=== PATIENT | female | born 1975 | race Caucasian/White ===

== ENCOUNTER 2022-06-03 22:44 | Emergency (ER) | payer BC, SELFPAY ==
[2022-06-03 22:54] VITALS: BP 119/81; PULSE 87; RESP 16; TEMP 37.1; O2SAT 98; BMI 20.2
[2022-06-03 23:49] LABS: Basophils Absolute Auto 0.04 K/uL (0.00-0.30); Basophils Percent Auto 0.5 % (0.0-3.0); Carboxyhemoglobin* 9.8 % (0.0-5.0); Eosinophils Absolute Auto 0.21 K/uL (0.00-0.50); Eosinophils Percent Auto 2.6 % (0.0-7.0); Hematocrit 41.1 % (33.0-51.0); Hemoglobin* 14.2 gm/dL (12.0-16.0); Immature Granulocytes Abs Auto 0.01 K/uL (0.00-0.30); Lymphocytes Absolute Auto 2.94 K/uL (0.90-2.90); Lymphocytes Percent Auto 36.7 % (20-44); Mean Corpuscular HGB Conc 35 gm/dL (32-36); Mean Corpuscular Hemoglobin 33 pg (26-34); Mean Corpuscular Volume 96 fL (80-100); Monocytes Percent Auto 8.4 % (0.0-11.0); Neutrophils Absolute Auto 4.15 K/uL (1.7-7.0); Neutrophils Percent Auto 51.7 % (42.0-72.0); Platelet Count* 221 K/uL (140-440); RDW Coefficient of Variation % 12.4 % (11.5-15.5); Red Blood Count 4.29 m/uL (4.00-5.20); White Blood Count* 8.02 K/uL (4.50-11.00)
[2022-06-03 23:51] LABS: Slide Review Reflex No
[2022-06-03 23:55] LABS: Albumin* 4.7 g/dL (3.3-5.0); Chloride* 105 mmol/L (96-114)
[2022-06-03 23:56] LABS: Potassium* 3.7 mmol/L (3.6-5.1); Sodium* 134 mmol/L (135-149)
--- NOTE | 2022-06-03 23:56 | ED.PSYCH ---
HPI - Psych General Date Seen: 06/03/22 <Jung Zurita MD - Last Filed: 06/04/22 13:00> Chief Complaint: Psychiatric Problem/Disorder <Jung Zurita MD - Last Filed: 06/04/22 13:00> Stated Complaint: SUICIDAL <Jung Zurita MD - Last Filed: 06/04/22 13:00> Time Seen by Provider: 06/03/22 22:53 <Jung Zurita MD - Last Filed: 06/04/22 13:00> Source: patient and other (Brought in by friend) <Jung Zurita MD - Last Filed: 06/04/22 13:00> Mode of arrival: ambulatory <Jung Zurita MD - Last Filed: 06/04/22 13:00> Limitations: no limitations <Jung Zurita MD - Last Filed: 06/04/22 13:00> History of Present Illness HPI Narrative: Patient is a 46-year-old lady who presents here with suicidal ideation and attempt yesterday, locking herself in her graduate running her car home night. She just wanted to go to sleep, by using the carbon monoxide. He has had previous suicidal attempts she tells me x3, with 2 previous evaluations here in the emergency room. She tells me she has tried medications for depression, and counseling both of which do not work. She was last on medications greater than 6 months ago, and counseling greater than 1 year ago. She is coming up to the anniversary of her sister dying, her sister 4 years ago and they never really got closure as the autopsy did not show any reason. They were told however that this was her heart. She does drink excessive alcohol, admits to having at least 8 beers tonight, this is a normal occurrence with about 8 beers a night total. Denies any drugs, denies taking any other medications tonight, Lives with her 3 children she has a 4 through lives in [place] and is with the [employer]. Local physician is Dr.Mark Hernandez <Jung Zurita MD - Last Filed: 06/04/22 13:00> MD complaint: suicidal ideation, feels depressed and altered mental status <Jung Zurita MD - Last Filed: 06/04/22 13:00> Onset (ago): week(s) <Jung Zurita MD - Last Filed: 06/04/22 13:00> Duration: constant <Jung Zurita MD - Last Filed: 06/04/22 13:00> History of same: Yes <Jung Zurita MD - Last Filed: 06/04/22 13:00> Relieving factors: none <Jung Zurita MD - Last Filed: 06/04/22 13:00> Exacerbating factors: alcohol <Jung Zurita MD - Last Filed: 06/04/22 13:00> Context: recent alcohol abuse and not taking psychiatric medications <Jung Zurita MD - Last Filed: 06/04/22 13:00> Associated psychiatric symptoms: depression, suicidal ideation and visual hallucinations (Thought her sister checked her last night, keeping her from going out to the garage ) <Jung Zurita MD - Last Filed: 06/04/22 13:00> Associated symptoms: denies other symptoms <Jung Zurita MD - Last Filed: 06/04/22 13:00> Treatments prior to arrival: none <Jung Zurita MD - Last Filed: 06/04/22 13:00> If self harm: has acted on plan <Jung Zurita MD - Last Filed: 06/04/22 13:00> Details of plan: Locking herself in the gradual run in the car <Jung Zurita MD - Last Filed: 06/04/22 13:00> Related Data Home Medications: Home Medications Medication Instructions Recorded Confirmed levothyroxine 50 mcg tablet mcg 06/03/22 <Jung Zurita MD - Last Filed: 06/04/22 13:00> Allergies/Adverse Reactions: Allergies Allergy/AdvReac Type Severity Reaction Status Date / Time latex AdvReac Verified 06/03/22 22:57 <Jung Zurita MD - Last Filed: 06/04/22 13:00> Review of Systems Status of ROS: Reports: 10 or more systems reviewed and unremarkable except as noted in History and below <Jung Zurita MD - Last Filed: 06/04/22 13:00> [facility] Medical History: Medical History Hypothyroidism <Jung Zurita MD - Last Filed: 06/04/22 13:00> Surgical History: Surgical History H/O LEEP History of abdominal hysterectomy <Jung Zurita MD - Last Filed: 06/04/22 13:00> Social History: Social History Smoking Status: Current every day smoker What tobacco products do you use: cigarettes Smoking packs per day: 2 Smoking cigarettes per day: 40.0 Do you use any of these nicotine containing products: None How often do you have a drink containing alcohol: 4 or more times a week How often do you have six or more drinks on one occasion: Daily or almost daily AUDIT-C Alcohol total score: 8 Non-prescribed substance use: denies use <Jung Zurita MD - Last Filed: 06/04/22 13:00> Exam Narrative: Exam Narrative: I find a comfortable in route room 2, she is examined with nurse present. Pupils are equal round reactive to light, nontoxic, smells of alcohol, TMs normal, oropharynx normal her neck is supple full range of motion chest is clear bilaterally with no wheezing crackles noted heart sounds no clicks murmurs or gallops her abdomen is soft, she has a bit of a full bladder, but no organomegaly is noted. Pelvis normal stable to rocking, all extremities are normal with absence of any cutting phenomena, she has a bruise in her right antecubital fossa, from a blood draw yesterday for STDs at the [facility]. Neurologically intact with cranial nerves 3-12 normal, she has no tremors, moving all extremities independently and well. <Jung Zurita MD - Last Filed: 06/04/22 13:00> Const: Vital Signs, click to edit/add: Vital Signs - 24 hr 06/04/22 03:00 06/04/22 05:00 06/04/22 09:59 Temperature 98.3 F Pulse Rate [Left P ulse Oximeter] 74 77 Respiratory Rate 14 16 20 Blood Pressure [Le ft Upper Arm] 123/76 Pulse Oximetry 97 96 97 Oxygen Delivery Me thod Room Air Room Air Room Air 06/04/22 16:43 Temperature 97.9 F Pulse Rate [Left P ulse Oximeter] 66 Respiratory Rate 16 Blood Pressure [Le ft Upper Arm] 121/74 Pulse Oximetry 97 Oxygen Delivery Me thod <Jung Zurita MD - Last Filed: 06/04/22 13:00> Vital Signs, click to edit/add: Vital Signs - 24 hr 06/04/22 03:00 06/04/22 05:00 06/04/22 09:59 Temperature 98.3 F Pulse Rate [Left P ulse Oximeter] 74 77 Respiratory Rate 14 16 20 Blood Pressure [Le ft Upper Arm] 123/76 Pulse Oximetry 97 96 97 Oxygen Delivery Me thod Room Air Room Air Room Air 06/04/22 16:43 Temperature 97.9 F Pulse Rate [Left P ulse Oximeter] 66 Respiratory Rate 16 Blood Pressure [Le ft Upper Arm] 121/74 Pulse Oximetry 97 Oxygen Delivery Me thod <Radha Aranda MD - Last Filed: 06/05/22 02:24> Vital Signs, click to edit/add: Vital Signs - 24 hr 06/04/22 03:00 06/04/22 05:00 06/04/22 09:59 Temperature 98.3 F Pulse Rate [Left P ulse Oximeter] 74 77 Respiratory Rate 14 16 20 Blood Pressure [Le ft Upper Arm] 123/76 Pulse Oximetry 97 96 97 Oxygen Delivery Me thod Room Air Room Air Room Air 06/04/22 16:43 Temperature 97.9 F Pulse Rate [Left P ulse Oximeter] 66 Respiratory Rate 16 Blood Pressure [Le ft Upper Arm] 121/74 Pulse Oximetry 97 Oxygen Delivery Me thod <Leo Newsome MD - Last Filed: 06/04/22 11:56> Vital Signs, click to edit/add: Vital Signs - 24 hr 06/04/22 03:00 06/04/22 05:00 06/04/22 09:59 Temperature 98.3 F Pulse Rate [Left P ulse Oximeter] 74 77 Respiratory Rate 14 16 20 Blood Pressure [Le ft Upper Arm] 123/76 Pulse Oximetry 97 96 97 Oxygen Delivery Me thod Room Air Room Air Room Air 06/04/22 16:43 Temperature 97.9 F Pulse Rate [Left P ulse Oximeter] 66 Respiratory Rate 16 Blood Pressure [Le ft Upper Arm] 121/74 Pulse Oximetry 97 Oxygen Delivery Me thod <Dayanara Neumann MD - Last Filed: 06/06/22 16:00> Documenting provider has reviewed patient's vital signs: yes <Jung Zurita MD - Last Filed: 06/04/22 13:00> Course Reevaluation(s) Reevaluation #1: I assumed care of patient from Dr. Zurita, labs reviewed. Carbon monoxide levels noted, under 10% is not likely to be causing any impairment. Markedly high alcohol level noted. Based on significant intoxication, will need to wait until morning for reassessment, deck evaluation. At this time based on her recent suicide attempt, she is certainly holdable. Dr. Zurita has signed this. He gave me the impression that the patient would be voluntary. I allow her to eat, she does so safely. She has been resting comfortably through my shift. <Radha Aranda MD - Last Filed: 06/05/22 02:24> Time: 05:09 <Radha Aranda MD - Last Filed: 06/05/22 02:24> Reevaluation #2: Patient was stable during the day until transfer to [facility]. Did order a nicotine patch per her request. <Dayanara Neumann MD - Last Filed: 06/06/22 16:00> Vital Signs Vital signs: Initial Vital Signs Temperature 98.7 F 06/03/22 22:54 Temperature Source Temporal Artery Scan 06/03/22 22:54 Pulse Rate 87 06/03/22 22:54 Pulse Rhythm 06/03/22 22:54 Respiratory Rate 16 06/03/22 22:54 Blood Pressure 119/81 06/03/22 22:54 Blood Pressure Mean 93 06/03/22 22:54 Blood Pressure Position Sitting 06/03/22 22:54 Pulse Oximetry 98 06/03/22 22:54 Oxygen Delivery Method 06/03/22 22:54 Vital Signs Temperature 98.7 F 06/03/22 22:54 Pulse Rate 87 06/03/22 22:54 Respiratory Rate 16 06/03/22 22:54 Blood Pressure 119/81 1013/22 22:54 Pulse Oximetry 98 06/03/22 22:54 Oxygen Delivery Method 06/03/22 22:54 Temperature 97.5 F L 06/05/22 14:28 Pulse Rate 56 L 06/05/22 14:28 Respiratory Rate 16 06/05/22 14:28 Blood Pressure 122/76 06/05/22 14:28 Pulse Oximetry 16 L 06/05/22 14:28 Oxygen Delivery Method 06/05/22 14:28 <Jung Zurita MD - Last Filed: 06/04/22 13:00> Initial Vital Signs Temperature 98.7 F 06/03/22 22:54 Temperature Source Temporal Artery Scan 06/03/22 22:54 Pulse Rate 87 06/03/22 22:54 Pulse Rhythm 06/03/22 22:54 Respiratory Rate 16 06/03/22 22:54 Blood Pressure 119/81 06/03/22 22:54 Blood Pressure Mean 93 06/03/22 22:54 Blood Pressure Position Sitting 06/03/22 22:54 Pulse Oximetry 98 06/03/22 22:54 Oxygen Delivery Method 06/03/22 22:54 Vital Signs Temperature 98.7 F 06/03/22 22:54 Pulse Rate 87 06/03/22 22:54 Respiratory Rate 16 06/03/22 22:54 Blood Pressure 119/81 06/03/22 22:54 Pulse Oximetry 98 06/03/22 22:54 Oxygen Delivery Method 06/03/22 22:54 Temperature 97.5 F L 06/05/22 14:28 Pulse Rate 56 L 06/05/22 14:28 Respiratory Rate 16 06/05/22 14:28 Blood Pressure 122/76 06/05/22 14:28 Pulse Oximetry 16 L 06/05/22 14:28 Oxygen Delivery Method 06/05/22 14:28 <Radha Aranda MD - Last Filed: 06/05/22 02:24> Initial Vital Signs Temperature 98.7 F 06/03/22 22:54 Temperature Source Temporal Artery Scan 06/03/22 22:54 Pulse Rate 87 06/03/22 22:54 Pulse Rhythm 06/03/22 22:54 Respiratory Rate 16 06/03/22 22:54 Blood Pressure 119/81 06/03/22 22:54 Blood Pressure Mean 93 06/03/22 22:54 Blood Pressure Position Sitting 06/03/22 22:54 Pulse Oximetry 98 06/03/22 22:54 Oxygen Delivery Method 06/03/22 22:54 Vital Signs Temperature 98.7 F 06/03/22 22:54 Pulse Rate 87 06/03/22 22:54 Respiratory Rate 16 06/03/22 22:54 Blood Pressure 119/81 06/03/22 22:54 Pulse Oximetry 98 06/03/22 22:54 Oxygen Delivery Method 06/03/22 22:54 Temperature 97.5 F L 06/05/22 14:28 Pulse Rate 56 L 06/05/22 14:28 Respiratory Rate 16 06/05/22 14:28 Blood Pressure 122/76 06/05/22 14:28 Pulse Oximetry 16 L 06/05/22 14:28 Oxygen Delivery Method 06/05/22 14:28 <Leo Newsome MD - Last Filed: 06/04/22 11:56> Initial Vital Signs Temperature 98.7 F 06/03/22 22:54 Temperature Source Temporal Artery Scan 06/03/22 22:54 Pulse Rate 87 06/03/22 22:54 Pulse Rhythm 06/03/22 22:54 Respiratory Rate 16 06/03/22 22:54 Blood Pressure 119/81 06/03/22 22:54 Blood Pressure Mean 93 06/03/22 22:54 Blood Pressure Position Sitting 06/03/22 22:54 Pulse Oximetry 98 06/03/22 22:54 Oxygen Delivery Method 06/03/22 22:54 Vital Signs Temperature 98.7 F 06/03/22 22:54 Pulse Rate 87 06/03/22 22:54 Respiratory Rate 16 06/03/22 22:54 Blood Pressure 119/81 06/03/22 22:54 Pulse Oximetry 98 06/03/22 22:54 Oxygen Delivery Method 06/03/22 22:54 Temperature 97.5 F L 06/05/22 14:28 Pulse Rate 56 L 06/05/22 14:28 Respiratory Rate 16 06/05/22 14:28 Blood Pressure 122/76 06/05/22 14:28 Pulse Oximetry 16 L 06/05/22 14:28 Oxygen Delivery Method 06/05/22 14:28 <Dayanara Neumann MD - Last Filed: 06/06/22 16:00> MDM - Psych MDM Narrative Medical decision making narrative: Differential diagnosis includes but is not limited life-threatening diagnosis is of severe depression with suicidal plan, chemical intoxication with suicidal ideation and risk of self-harm, schizoaffective disorder with risk of self-harm, bipolar disorder with severe depressive phase and risk of self-harm, personality disorder with risk of self-harm, depression due to hyperthyroidism, metabolic derangement, or [employer] abnormality She will require sobriety before she gets her mental health assessment, but she is holdable, she is cooperative rate now but if she decides to leave, a 72 hour hold should be placed. I will go ahead and place orders, for a common blood tests with the addition of carboxyhemoglobin. She will be signed over to the oncoming physician Dr. Aranda for further care and disposition. <Jung Zurita MD - Last Filed: 06/04/22 13:00> Differential diagnosis includes but is not limited life-threatening diagnosis is of severe depression with suicidal plan, chemical intoxication with suicidal ideation and risk of self-harm, schizoaffective disorder with risk of self-harm, bipolar disorder with severe depressive phase and risk of self-harm, personality disorder with risk of self-harm, depression due to hyperthyroidism, metabolic derangement, or [employer] abnormality She will require sobriety before she gets her mental health assessment, but she is holdable, she is cooperative rate now but if she decides to leave, a 72 hour hold should be placed. I will go ahead and place orders, for a common blood tests with the addition of carboxyhemoglobin. She will be signed over to the oncoming physician Dr. Aranda for further care and disposition. This patient slept through the night and did awake to take breakfast in the morning. A [facility] mental assessment was ordered and completed with recommendation for inpatient evaluation and treatment. The patient is not agreeable with this plan. She is placed on a 72 hour hold and arrangements are being made for inpatient placement. I did offer a tablet of Ativan which the patient initially has refused but an order is in place if needed and desired going forward. She does take approximately 8 beers daily. She does not describe any withdrawal symptoms. - Dr. Keagan Newsome <Leo Newsome MD - Last Filed: 06/04/22 11:56> Lab Data Labs: Lab Results 06/03/22 06/03/22 06/03/22 Range/Units 23:30 23:30 23:30 WBC (4.50-11.00) K/uL RBC (4.00-5.20) m/uL Hgb (12.0-16.0) gm/dL Hct (33.0-51.0) % MCV (80-100) fL MCH (26-34) pg MCHC (32-36) gm/dL RDW Coeff of Akhil (11.5-15.5) % Plt Count (140-440) K/uL Neut % (Auto) (42.0-72.0) % Lymph % (Auto) (20-44) % [place] % (Auto) (0.0-11.0) % Eos % (Auto) (0.0-7.0) % Baso % (Auto) (0.0-3.0) % Neut # (Auto) (1.7-7.0) K/uL Lymph # (Auto) (0.90-2.90) K/uL [place] # (Auto) (0.00-0.90) K/UL Eos # (Auto) (0.00-0.50) K/uL Baso # (Auto) (0.00-0.30) K/uL Abs Immat Gran (auto) (0.00-0.30) K/uL Carboxyhemoglobin 9.8 H (0.0-5.0) % Sodium (135-149) mmol/L Potassium (3.6-5.1) mmol/L Chloride (96-114) mmol/L Carbon Dioxide (20-32) mmol/L BUN (5-24) mg/dL Creatinine (0.5-1.5) mg/dL Estimated Creat Clear Estimated GFR ml/min Glucose (60-115) mg/dL Calcium (8.4-10.6) mg/dL Total Bilirubin (0.1-1.5) mg/dL Direct Bilirubin (0.0-0.5) mg/dL AST (12-35) U/L ALT (4-35) U/L Alkaline Phosphatase (40-150) U/L Total Protein (6.0-8.3) g/dL Albumin (3.3-5.0) g/dL TSH 3.110 (0.270-4.20) uIU/mL HCG, Qual (Negative) Salicylates < 1.0 L (1.0-10) mg/dL Urine Opiates Screen (Negative) Ur Oxycodone Screen (Negative) Urine Methadone Screen (Negative) Ur Propoxyphene Screen (Negative) Acetaminophen (10.0-30.0) ug/mL Ur Barbiturates Screen (Negative) U Tricyclic Antidepress (Negative) Ur Phencyclidine Scrn (Negative) Ur Amphetamines Screen (Negative) U Methamphetamines Scrn (Negative) U Benzodiazepines Scrn (Negative) Urine Cocaine Screen (Negative) U Marijuana (THC) Screen (Negative) Ur Drug Screen Comment Ethyl Alcohol (0.01-0.03) % SARS-CoV-2 (PCR) (Negative) Influenza Type A (PCR) (Negative) Influenza Type B (PCR) (Negative) RSV (PCR) (Negative) 06/03/22 06/03/22 06/03/22 Range/Units 23:30 23:30 23:30 WBC 8.02 (4.50-11.00) K/uL RBC 4.29 (4.00-5.20) m/uL Hgb 14.2 (12.0-16.0) gm/dL Hct 41.1 (33.0-51.0) % MCV 96 (80-100) fL MCH 33 (26-34) pg MCHC 35 (32-36) gm/dL RDW Coeff of Akhil 12.4 (11.5-15.5) % Plt Count 221 (140-440) K/uL Neut % (Auto) 51.7 (42.0-72.0) % Lymph % (Auto) 36.7 (20-44) % [place] % (Auto) 8.4 (0.0-11.0) % Eos % (Auto) 2.6 (0.0-7.0) % Baso % (Auto) 0.5 (0.0-3.0) % Neut # (Auto) 4.15 (1.7-7.0) K/uL Lymph # (Auto) 2.94 H (0.90-2.90) K/uL [place] # (Auto) 0.70 (0.00-0.90) K/UL Eos # (Auto) 0.21 (0.00-0.50) K/uL Baso # (Auto) 0.04 (0.00-0.30) K/uL Abs Immat Gran (auto) 0.01 (0.00-0.30) K/uL Carboxyhemoglobin (0.0-5.0) % Sodium 134 L (135-149) mmol/L Potassium 3.7 (3.6-5.1) mmol/L Chloride 105 (96-114) mmol/L Carbon Dioxide 19 L (20-32) mmol/L BUN 7 (5-24) mg/dL Creatinine 0.6 (0.5-1.5) mg/dL Estimated Creat Clear 107.10 Estimated GFR 113 ml/min Glucose 96 (60-115) mg/dL Calcium 8.9 (8.4-10.6) mg/dL Total Bilirubin 0.6 (0.1-1.5) mg/dL Direct Bilirubin 0.2 (0.0-0.5) mg/dL AST 47 H (12-35) U/L ALT 17 (4-35) U/L Alkaline Phosphatase 41 (40-150) U/L Total Protein 7.2 (6.0-8.3) g/dL Albumin 4.7 (3.3-5.0) g/dL TSH (0.270-4.20) uIU/mL HCG, Qual Negative (Negative) Salicylates (1.0-10) mg/dL Urine Opiates Screen (Negative) Ur Oxycodone Screen (Negative) Urine Methadone Screen (Negative) Ur Propoxyphene Screen (Negative) Acetaminophen < 10.0 L (10.0-30.0) ug/mL Ur Barbiturates Screen (Negative) U Tricyclic Antidepress (Negative) Ur Phencyclidine Scrn (Negative) Ur Amphetamines Screen (Negative) U Methamphetamines Scrn (Negative) U Benzodiazepines Scrn (Negative) Urine Cocaine Screen (Negative) U Marijuana (THC) Screen (Negative) Ur Drug Screen Comment Ethyl Alcohol 0.33 H* (0.01-0.03) % SARS-CoV-2 (PCR) (Negative) Influenza Type A (PCR) (Negative) Influenza Type B (PCR) (Negative) RSV (PCR) (Negative) 06/03/22 06/03/22 06/04/22 Range/Units 23:45 23:45 16:19 WBC (4.50-11.00) K/uL RBC (4.00-5.20) m/uL Hgb (12.0-16.0) gm/dL Hct (33.0-51.0) % MCV (80-100) fL MCH (26-34) pg MCHC (32-36) gm/dL RDW Coeff of Akhil (11.5-15.5) % Plt Count (140-440) K/uL Neut % (Auto) (42.0-72.0) % Lymph % (Auto) (20-44) % [place] % (Auto) (0.0-11.0) % Eos % (Auto) (0.0-7.0) % Baso % (Auto) (0.0-3.0) % Neut # (Auto) (1.7-7.0) K/uL Lymph # (Auto) (0.90-2.90) K/uL [place] # (Auto) (0.00-0.90) K/UL Eos # (Auto) (0.00-0.50) K/uL Baso # (Auto) (0.00-0.30) K/uL Abs Immat Gran (auto) (0.00-0.30) K/uL Carboxyhemoglobin (0.0-5.0) % Sodium (135-149) mmol/L Potassium (3.6-5.1) mmol/L Chloride (96-114) mmol/L Carbon Dioxide (20-32) mmol/L BUN (5-24) mg/dL Creatinine (0.5-1.5) mg/dL Estimated Creat Clear Estimated GFR ml/min Glucose (60-115) mg/dL Calcium (8.4-10.6) mg/dL Total Bilirubin (0.1-1.5) mg/dL Direct Bilirubin (0.0-0.5) mg/dL AST (12-35) U/L ALT (4-35) U/L Alkaline Phosphatase (40-150) U/L Total Protein (6.0-8.3) g/dL Albumin (3.3-5.0) g/dL TSH (0.270-4.20) uIU/mL HCG, Qual (Negative) Salicylates (1.0-10) mg/dL Urine Opiates Screen Negative (Negative) Ur Oxycodone Screen Negative (Negative) Urine Methadone Screen Negative (Negative) Ur Propoxyphene Screen Negative (Negative) Acetaminophen (10.0-30.0) ug/mL Ur Barbiturates Screen Negative (Negative) U Tricyclic Antidepress Negative (Negative) Ur Phencyclidine Scrn Negative (Negative) Ur Amphetamines Screen Negative (Negative) U Methamphetamines Scrn Negative (Negative) U Benzodiazepines Scrn Negative (Negative) Urine Cocaine Screen Negative (Negative) U Marijuana (THC) Screen Negative (Negative) Ur Drug Screen Comment See Note Ethyl Alcohol < 0.01 L (0.01-0.03) % SARS-CoV-2 (PCR) Negative SARS-CoV-2 (Negative) Influenza Type A (PCR) Negative PCR FLU A (Negative) Influenza Type B (PCR) Negative PCR FLU B (Negative) RSV (PCR) Negative PCR RSV (Negative) 06/04/22 Range/Units 16:19 WBC (4.50-11.00) K/uL RBC (4.00-5.20) m/uL Hgb (12.0-16.0) gm/dL Hct (33.0-51.0) % MCV (80-100) fL MCH (26-34) pg MCHC (32-36) gm/dL RDW Coeff of Akhil (11.5-15.5) % Plt Count (140-440) K/uL Neut % (Auto) (42.0-72.0) % Lymph % (Auto) (20-44) % [place] % (Auto) (0.0-11.0) % Eos % (Auto) (0.0-7.0) % Baso % (Auto) (0.0-3.0) % Neut # (Auto) (1.7-7.0) K/uL Lymph # (Auto) (0.90-2.90) K/uL [place] # (Auto) (0.00-0.90) K/UL Eos # (Auto) (0.00-0.50) K/uL Baso # (Auto) (0.00-0.30) K/uL Abs Immat Gran (auto) (0.00-0.30) K/uL Carboxyhemoglobin (0.0-5.0) % Sodium 137 (135-149) mmol/L Potassium 4.3 (3.6-5.1) mmol/L Chloride 107 (96-114) mmol/L Carbon Dioxide 26 (20-32) mmol/L BUN 16 (5-24) mg/dL Creatinine 0.7 (0.5-1.5) mg/dL Estimated Creat Clear 91.80 Estimated GFR 109 ml/min Glucose 162 H (60-115) mg/dL Calcium 9.3 (8.4-10.6) mg/dL Total Bilirubin (0.1-1.5) mg/dL Direct Bilirubin (0.0-0.5) mg/dL AST (12-35) U/L ALT (4-35) U/L Alkaline Phosphatase (40-150) U/L Total Protein (6.0-8.3) g/dL Albumin (3.3-5.0) g/dL TSH (0.270-4.20) uIU/mL HCG, Qual (Negative) Salicylates (1.0-10) mg/dL Urine Opiates Screen (Negative) Ur Oxycodone Screen (Negative) Urine Methadone Screen (Negative) Ur Propoxyphene Screen (Negative) Acetaminophen (10.0-30.0) ug/mL Ur Barbiturates Screen (Negative) U Tricyclic Antidepress (Negative) Ur Phencyclidine Scrn (Negative) Ur Amphetamines Screen (Negative) U Methamphetamines Scrn (Negative) U Benzodiazepines Scrn (Negative) Urine Cocaine Screen (Negative) U Marijuana (THC) Screen (Negative) Ur Drug Screen Comment Ethyl Alcohol (0.01-0.03) % SARS-CoV-2 (PCR) (Negative) Influenza Type A (PCR) (Negative) Influenza Type B (PCR) (Negative) RSV (PCR) (Negative) <Jung Zurita MD - Last Filed: 06/04/22 13:00> Lab Results 06/03/22 06/03/22 06/03/22 Range/Units 23:30 23:30 23:30 WBC (4.50-11.00) K/uL RBC (4.00-5.20) m/uL Hgb (12.0-16.0) gm/dL Hct (33.0-51.0) % MCV (80-100) fL MCH (26-34) pg MCHC (32-36) gm/dL RDW Coeff of Akhil (11.5-15.5) % Plt Count (140-440) K/uL Neut % (Auto) (42.0-72.0) % Lymph % (Auto) (20-44) % [place] % (Auto) (0.0-11.0) % Eos % (Auto) (0.0-7.0) % Baso % (Auto) (0.0-3.0) % Neut # (Auto) (1.7-7.0) K/uL Lymph # (Auto) (0.90-2.90) K/uL [place] # (Auto) (0.00-0.90) K/UL Eos # (Auto) (0.00-0.50) K/uL Baso # (Auto) (0.00-0.30) K/uL Abs Immat Gran (auto) (0.00-0.30) K/uL Carboxyhemoglobin 9.8 H (0.0-5.0) % Sodium (135-149) mmol/L Potassium (3.6-5.1) mmol/L Chloride (96-114) mmol/L Carbon Dioxide (20-32) mmol/L BUN (5-24) mg/dL Creatinine (0.5-1.5) mg/dL Estimated Creat Clear Estimated GFR ml/min Glucose (60-115) mg/dL Calcium (8.4-10.6) mg/dL Total Bilirubin (0.1-1.5) mg/dL Direct Bilirubin (0.0-0.5) mg/dL AST (12-35) U/L ALT (4-35) U/L Alkaline Phosphatase (40-150) U/L Total Protein (6.0-8.3) g/dL Albumin (3.3-5.0) g/dL TSH 3.110 (0.270-4.20) uIU/mL HCG, Qual (Negative) Salicylates < 1.0 L (1.0-10) mg/dL Urine Opiates Screen (Negative) Ur Oxycodone Screen (Negative) Urine Methadone Screen (Negative) Ur Propoxyphene Screen (Negative) Acetaminophen (10.0-30.0) ug/mL Ur Barbiturates Screen (Negative) U Tricyclic Antidepress (Negative) Ur Phencyclidine Scrn (Negative) Ur Amphetamines Screen (Negative) U Methamphetamines Scrn (Negative) U Benzodiazepines Scrn (Negative) Urine Cocaine Screen (Negative) U Marijuana (THC) Screen (Negative) Ur Drug Screen Comment Ethyl Alcohol (0.01-0.03) % SARS-CoV-2 (PCR) (Negative) Influenza Type A (PCR) (Negative) Influenza Type B (PCR) (Negative) RSV (PCR) (Negative) 06/03/22 06/03/22 06/03/22 Range/Units 23:30 23:30 23:30 WBC 8.02 (4.50-11.00) K/uL RBC 4.29 (4.00-5.20) m/uL Hgb 14.2 (12.0-16.0) gm/dL Hct 41.1 (33.0-51.0) % MCV 96 (80-100) fL MCH 33 (26-34) pg MCHC 35 (32-36) gm/dL RDW Coeff of Akhil 12.4 (11.5-15.5) % Plt Count 221 (140-440) K/uL Neut % (Auto) 51.7 (42.0-72.0) % Lymph % (Auto) 36.7 (20-44) % [place] % (Auto) 8.4 (0.0-11.0) % Eos % (Auto) 2.6 (0.0-7.0) % Baso % (Auto) 0.5 (0.0-3.0) % Neut # (Auto) 4.15 (1.7-7.0) K/uL Lymph # (Auto) 2.94 H (0.90-2.90) K/uL [place] # (Auto) 0.70 (0.00-0.90) K/UL Eos # (Auto) 0.21 (0.00-0.50) K/uL Baso # (Auto) 0.04 (0.00-0.30) K/uL Abs Immat Gran (auto) 0.01 (0.00-0.30) K/uL Carboxyhemoglobin (0.0-5.0) % Sodium 134 L (135-149) mmol/L Potassium 3.7 (3.6-5.1) mmol/L Chloride 105 (96-114) mmol/L Carbon Dioxide 19 L (20-32) mmol/L BUN 7 (5-24) mg/dL Creatinine 0.6 (0.5-1.5) mg/dL Estimated Creat Clear 107.10 Estimated GFR 113 ml/min Glucose 96 (60-115) mg/dL Calcium 8.9 (8.4-10.6) mg/dL Total Bilirubin 0.6 (0.1-1.5) mg/dL Direct Bilirubin 0.2 (0.0-0.5) mg/dL AST 47 H (12-35) U/L ALT 17 (4-35) U/L Alkaline Phosphatase 41 (40-150) U/L Total Protein 7.2 (6.0-8.3) g/dL Albumin 4.7 (3.3-5.0) g/dL TSH (0.270-4.20) uIU/mL HCG, Qual Negative (Negative) Salicylates (1.0-10) mg/dL Urine Opiates Screen (Negative) Ur Oxycodone Screen (Negative) Urine Methadone Screen (Negative) Ur Propoxyphene Screen (Negative) Acetaminophen < 10.0 L (10.0-30.0) ug/mL Ur Barbiturates Screen (Negative) U Tricyclic Antidepress (Negative) Ur Phencyclidine Scrn (Negative) Ur Amphetamines Screen (Negative) U Methamphetamines Scrn (Negative) U Benzodiazepines Scrn (Negative) Urine Cocaine Screen (Negative) U Marijuana (THC) Screen (Negative) Ur Drug Screen Comment Ethyl Alcohol 0.33 H* (0.01-0.03) % SARS-CoV-2 (PCR) (Negative) Influenza Type A (PCR) (Negative) Influenza Type B (PCR) (Negative) RSV (PCR) (Negative) 06/03/22 06/03/22 06/04/22 Range/Units 23:45 23:45 16:19 WBC (4.50-11.00) K/uL RBC (4.00-5.20) m/uL Hgb (12.0-16.0) gm/dL Hct (33.0-51.0) % MCV (80-100) fL MCH (26-34) pg MCHC (32-36) gm/dL RDW Coeff of Akhil (11.5-15.5) % Plt Count (140-440) K/uL Neut % (Auto) (42.0-72.0) % Lymph % (Auto) (20-44) % [place] % (Auto) (0.0-11.0) % Eos % (Auto) (0.0-7.0) % Baso % (Auto) (0.0-3.0) % Neut # (Auto) (1.7-7.0) K/uL Lymph # (Auto) (0.90-2.90) K/uL [place] # (Auto) (0.00-0.90) K/UL Eos # (Auto) (0.00-0.50) K/uL Baso # (Auto) (0.00-0.30) K/uL Abs Immat Gran (auto) (0.00-0.30) K/uL Carboxyhemoglobin (0.0-5.0) % Sodium (135-149) mmol/L Potassium (3.6-5.1) mmol/L Chloride (96-114) mmol/L Carbon Dioxide (20-32) mmol/L BUN (5-24) mg/dL Creatinine (0.5-1.5) mg/dL Estimated Creat Clear Estimated GFR ml/min Glucose (60-115) mg/dL Calcium (8.4-10.6) mg/dL Total Bilirubin (0.1-1.5) mg/dL Direct Bilirubin (0.0-0.5) mg/dL AST (12-35) U/L ALT (4-35) U/L Alkaline Phosphatase (40-150) U/L Total Protein (6.0-8.3) g/dL Albumin (3.3-5.0) g/dL TSH (0.270-4.20) uIU/mL HCG, Qual (Negative) Salicylates (1.0-10) mg/dL Urine Opiates Screen Negative (Negative) Ur Oxycodone Screen Negative (Negative) Urine Methadone Screen Negative (Negative) Ur Propoxyphene Screen Negative (Negative) Acetaminophen (10.0-30.0) ug/mL Ur Barbiturates Screen Negative (Negative) U Tricyclic Antidepress Negative (Negative) Ur Phencyclidine Scrn Negative (Negative) Ur Amphetamines Screen Negative (Negative) U Methamphetamines Scrn Negative (Negative) U Benzodiazepines Scrn Negative (Negative) Urine Cocaine Screen Negative (Negative) U Marijuana (THC) Screen Negative (Negative) Ur Drug Screen Comment See Note Ethyl Alcohol < 0.01 L (0.01-0.03) % SARS-CoV-2 (PCR) Negative SARS-CoV-2 (Negative) Influenza Type A (PCR) Negative PCR FLU A (Negative) Influenza Type B (PCR) Negative PCR FLU B (Negative) RSV (PCR) Negative PCR RSV (Negative) 06/04/22 Range/Units 16:19 WBC (4.50-11.00) K/uL RBC (4.00-5.20) m/uL Hgb (12.0-16.0) gm/dL Hct (33.0-51.0) % MCV (80-100) fL MCH (26-34) pg MCHC (32-36) gm/dL RDW Coeff of Akhil (11.5-15.5) % Plt Count (140-440) K/uL Neut % (Auto) (42.0-72.0) % Lymph % (Auto) (20-44) % [place] % (Auto) (0.0-11.0) % Eos % (Auto) (0.0-7.0) % Baso % (Auto) (0.0-3.0) % Neut # (Auto) (1.7-7.0) K/uL Lymph # (Auto) (0.90-2.90) K/uL [place] # (Auto) (0.00-0.90) K/UL Eos # (Auto) (0.00-0.50) K/uL Baso # (Auto) (0.00-0.30) K/uL Abs Immat Gran (auto) (0.00-0.30) K/uL Carboxyhemoglobin (0.0-5.0) % Sodium 137 (135-149) mmol/L Potassium 4.3 (3.6-5.1) mmol/L Chloride 107 (96-114) mmol/L Carbon Dioxide 26 (20-32) mmol/L BUN 16 (5-24) mg/dL Creatinine 0.7 (0.5-1.5) mg/dL Estimated Creat Clear 91.80 Estimated GFR 109 ml/min Glucose 162 H (60-115) mg/dL Calcium 9.3 (8.4-10.6) mg/dL Total Bilirubin (0.1-1.5) mg/dL Direct Bilirubin (0.0-0.5) mg/dL AST (12-35) U/L ALT (4-35) U/L Alkaline Phosphatase (40-150) U/L Total Protein (6.0-8.3) g/dL Albumin (3.3-5.0) g/dL TSH (0.270-4.20) uIU/mL HCG, Qual (Negative) Salicylates (1.0-10) mg/dL Urine Opiates Screen (Negative) Ur Oxycodone Screen (Negative) Urine Methadone Screen (Negative) Ur Propoxyphene Screen (Negative) Acetaminophen (10.0-30.0) ug/mL Ur Barbiturates Screen (Negative) U Tricyclic Antidepress (Negative) Ur Phencyclidine Scrn (Negative) Ur Amphetamines Screen (Negative) U Methamphetamines Scrn (Negative) U Benzodiazepines Scrn (Negative) Urine Cocaine Screen (Negative) U Marijuana (THC) Screen (Negative) Ur Drug Screen Comment Ethyl Alcohol (0.01-0.03) % SARS-CoV-2 (PCR) (Negative) Influenza Type A (PCR) (Negative) Influenza Type B (PCR) (Negative) RSV (PCR) (Negative) <Radha Aranda MD - Last Filed: 06/05/22 02:24> Lab Results 06/03/22 06/03/22 06/03/22 Range/Units 23:30 23:30 23:30 WBC (4.50-11.00) K/uL RBC (4.00-5.20) m/uL Hgb (12.0-16.0) gm/dL Hct (33.0-51.0) % MCV (80-100) fL MCH (26-34) pg MCHC (32-36) gm/dL RDW Coeff of Akhil (11.5-15.5) % Plt Count (140-440) K/uL Neut % (Auto) (42.0-72.0) % Lymph % (Auto) (20-44) % [place] % (Auto) (0.0-11.0) % Eos % (Auto) (0.0-7.0) % Baso % (Auto) (0.0-3.0) % Neut # (Auto) (1.7-7.0) K/uL Lymph # (Auto) (0.90-2.90) K/uL [place] # (Auto) (0.00-0.90) K/UL Eos # (Auto) (0.00-0.50) K/uL Baso # (Auto) (0.00-0.30) K/uL Abs Immat Gran (auto) (0.00-0.30) K/uL Carboxyhemoglobin 9.8 H (0.0-5.0) % Sodium (135-149) mmol/L Potassium (3.6-5.1) mmol/L Chloride (96-114) mmol/L Carbon Dioxide (20-32) mmol/L BUN (5-24) mg/dL Creatinine (0.5-1.5) mg/dL Estimated Creat Clear Estimated GFR ml/min Glucose (60-115) mg/dL Calcium (8.4-10.6) mg/dL Total Bilirubin (0.1-1.5) mg/dL Direct Bilirubin (0.0-0.5) mg/dL AST (12-35) U/L ALT (4-35) U/L Alkaline Phosphatase (40-150) U/L Total Protein (6.0-8.3) g/dL Albumin (3.3-5.0) g/dL TSH 3.110 (0.270-4.20) uIU/mL HCG, Qual (Negative) Salicylates < 1.0 L (1.0-10) mg/dL Urine Opiates Screen (Negative) Ur Oxycodone Screen (Negative) Urine Methadone Screen (Negative) Ur Propoxyphene Screen (Negative) Acetaminophen (10.0-30.0) ug/mL Ur Barbiturates Screen (Negative) U Tricyclic Antidepress (Negative) Ur Phencyclidine Scrn (Negative) Ur Amphetamines Screen (Negative) U Methamphetamines Scrn (Negative) U Benzodiazepines Scrn (Negative) Urine Cocaine Screen (Negative) U Marijuana (THC) Screen (Negative) Ur Drug Screen Comment Ethyl Alcohol (0.01-0.03) % SARS-CoV-2 (PCR) (Negative) Influenza Type A (PCR) (Negative) Influenza Type B (PCR) (Negative) RSV (PCR) (Negative) 06/03/22 06/03/22 06/03/22 Range/Units 23:30 23:30 23:30 WBC 8.02 (4.50-11.00) K/uL RBC 4.29 (4.00-5.20) m/uL Hgb 14.2 (12.0-16.0) gm/dL Hct 41.1 (33.0-51.0) % MCV 96 (80-100) fL MCH 33 (26-34) pg MCHC 35 (32-36) gm/dL RDW Coeff of Akhil 12.4 (11.5-15.5) % Plt Count 221 (140-440) K/uL Neut % (Auto) 51.7 (42.0-72.0) % Lymph % (Auto) 36.7 (20-44) % [place] % (Auto) 8.4 (0.0-11.0) % Eos % (Auto) 2.6 (0.0-7.0) % Baso % (Auto) 0.5 (0.0-3.0) % Neut # (Auto) 4.15 (1.7-7.0) K/uL Lymph # (Auto) 2.94 H (0.90-2.90) K/uL [place] # (Auto) 0.70 (0.00-0.90) K/UL Eos # (Auto) 0.21 (0.00-0.50) K/uL Baso # (Auto) 0.04 (0.00-0.30) K/uL Abs Immat Gran (auto) 0.01 (0.00-0.30) K/uL Carboxyhemoglobin (0.0-5.0) % Sodium 134 L (135-149) mmol/L Potassium 3.7 (3.6-5.1) mmol/L Chloride 105 (96-114) mmol/L Carbon Dioxide 19 L (20-32) mmol/L BUN 7 (5-24) mg/dL Creatinine 0.6 (0.5-1.5) mg/dL Estimated Creat Clear 107.10 Estimated GFR 113 ml/min Glucose 96 (60-115) mg/dL Calcium 8.9 (8.4-10.6) mg/dL Total Bilirubin 0.6 (0.1-1.5) mg/dL Direct Bilirubin 0.2 (0.0-0.5) mg/dL AST 47 H (12-35) U/L ALT 17 (4-35) U/L Alkaline Phosphatase 41 (40-150) U/L Total Protein 7.2 (6.0-8.3) g/dL Albumin 4.7 (3.3-5.0) g/dL TSH (0.270-4.20) uIU/mL HCG, Qual Negative (Negative) Salicylates (1.0-10) mg/dL Urine Opiates Screen (Negative) Ur Oxycodone Screen (Negative) Urine Methadone Screen (Negative) Ur Propoxyphene Screen (Negative) Acetaminophen < 10.0 L (10.0-30.0) ug/mL Ur Barbiturates Screen (Negative) U Tricyclic Antidepress (Negative) Ur Phencyclidine Scrn (Negative) Ur Amphetamines Screen (Negative) U Methamphetamines Scrn (Negative) U Benzodiazepines Scrn (Negative) Urine Cocaine Screen (Negative) U Marijuana (THC) Screen (Negative) Ur Drug Screen Comment Ethyl Alcohol 0.33 H* (0.01-0.03) % SARS-CoV-2 (PCR) (Negative) Influenza Type A (PCR) (Negative) Influenza Type B (PCR) (Negative) RSV (PCR) (Negative) 06/03/22 06/03/22 06/04/22 Range/Units 23:45 23:45 16:19 WBC (4.50-11.00) K/uL RBC (4.00-5.20) m/uL Hgb (12.0-16.0) gm/dL Hct (33.0-51.0) % MCV (80-100) fL MCH (26-34) pg MCHC (32-36) gm/dL RDW Coeff of Akhil (11.5-15.5) % Plt Count (140-440) K/uL Neut % (Auto) (42.0-72.0) % Lymph % (Auto) (20-44) % [place] % (Auto) (0.0-11.0) % Eos % (Auto) (0.0-7.0) % Baso % (Auto) (0.0-3.0) % Neut # (Auto) (1.7-7.0) K/uL Lymph # (Auto) (0.90-2.90) K/uL [place] # (Auto) (0.00-0.90) K/UL Eos # (Auto) (0.00-0.50) K/uL Baso # (Auto) (0.00-0.30) K/uL Abs Immat Gran (auto) (0.00-0.30) K/uL Carboxyhemoglobin (0.0-5.0) % Sodium (135-149) mmol/L Potassium (3.6-5.1) mmol/L Chloride (96-114) mmol/L Carbon Dioxide (20-32) mmol/L BUN (5-24) mg/dL Creatinine (0.5-1.5) mg/dL Estimated Creat Clear Estimated GFR ml/min Glucose (60-115) mg/dL Calcium (8.4-10.6) mg/dL Total Bilirubin (0.1-1.5) mg/dL Direct Bilirubin (0.0-0.5) mg/dL AST (12-35) U/L ALT (4-35) U/L Alkaline Phosphatase (40-150) U/L Total Protein (6.0-8.3) g/dL Albumin (3.3-5.0) g/dL TSH (0.270-4.20) uIU/mL HCG, Qual (Negative) Salicylates (1.0-10) mg/dL Urine Opiates Screen Negative (Negative) Ur Oxycodone Screen Negative (Negative) Urine Methadone Screen Negative (Negative) Ur Propoxyphene Screen Negative (Negative) Acetaminophen (10.0-30.0) ug/mL Ur Barbiturates Screen Negative (Negative) U Tricyclic Antidepress Negative (Negative) Ur Phencyclidine Scrn Negative (Negative) Ur Amphetamines Screen Negative (Negative) U Methamphetamines Scrn Negative (Negative) U Benzodiazepines Scrn Negative (Negative) Urine Cocaine Screen Negative (Negative) U Marijuana (THC) Screen Negative (Negative) Ur Drug Screen Comment See Note Ethyl Alcohol < 0.01 L (0.01-0.03) % SARS-CoV-2 (PCR) Negative SARS-CoV-2 (Negative) Influenza Type A (PCR) Negative PCR FLU A (Negative) Influenza Type B (PCR) Negative PCR FLU B (Negative) RSV (PCR) Negative PCR RSV (Negative) 06/04/22 Range/Units 16:19 WBC (4.50-11.00) K/uL RBC (4.00-5.20) m/uL Hgb (12.0-16.0) gm/dL Hct (33.0-51.0) % MCV (80-100) fL MCH (26-34) pg MCHC (32-36) gm/dL RDW Coeff of Akhil (11.5-15.5) % Plt Count (140-440) K/uL Neut % (Auto) (42.0-72.0) % Lymph % (Auto) (20-44) % [place] % (Auto) (0.0-11.0) % Eos % (Auto) (0.0-7.0) % Baso % (Auto) (0.0-3.0) % Neut # (Auto) (1.7-7.0) K/uL Lymph # (Auto) (0.90-2.90) K/uL [place] # (Auto) (0.00-0.90) K/UL Eos # (Auto) (0.00-0.50) K/uL Baso # (Auto) (0.00-0.30) K/uL Abs Immat Gran (auto) (0.00-0.30) K/uL Carboxyhemoglobin (0.0-5.0) % Sodium 137 (135-149) mmol/L Potassium 4.3 (3.6-5.1) mmol/L Chloride 107 (96-114) mmol/L Carbon Dioxide 26 (20-32) mmol/L BUN 16 (5-24) mg/dL Creatinine 0.7 (0.5-1.5) mg/dL Estimated Creat Clear 91.80 Estimated GFR 109 ml/min Glucose 162 H (60-115) mg/dL Calcium 9.3 (8.4-10.6) mg/dL Total Bilirubin (0.1-1.5) mg/dL Direct Bilirubin (0.0-0.5) mg/dL AST (12-35) U/L ALT (4-35) U/L Alkaline Phosphatase (40-150) U/L Total Protein (6.0-8.3) g/dL Albumin (3.3-5.0) g/dL TSH (0.270-4.20) uIU/mL HCG, Qual (Negative) Salicylates (1.0-10) mg/dL Urine Opiates Screen (Negative) Ur Oxycodone Screen (Negative) Urine Methadone Screen (Negative) Ur Propoxyphene Screen (Negative) Acetaminophen (10.0-30.0) ug/mL Ur Barbiturates Screen (Negative) U Tricyclic Antidepress (Negative) Ur Phencyclidine Scrn (Negative) Ur Amphetamines Screen (Negative) U Methamphetamines Scrn (Negative) U Benzodiazepines Scrn (Negative) Urine Cocaine Screen (Negative) U Marijuana (THC) Screen (Negative) Ur Drug Screen Comment Ethyl Alcohol (0.01-0.03) % SARS-CoV-2 (PCR) (Negative) Influenza Type A (PCR) (Negative) Influenza Type B (PCR) (Negative) RSV (PCR) (Negative) <Leo Newsome MD - Last Filed: 06/04/22 11:56> Lab Results 06/03/22 06/03/22 06/03/22 Range/Units 23:30 23:30 23:30 WBC (4.50-11.00) K/uL RBC (4.00-5.20) m/uL Hgb (12.0-16.0) gm/dL Hct (33.0-51.0) % MCV (80-100) fL MCH (26-34) pg MCHC (32-36) gm/dL RDW Coeff of Akhil (11.5-15.5) % Plt Count (140-440) K/uL Neut % (Auto) (42.0-72.0) % Lymph % (Auto) (20-44) % [place] % (Auto) (0.0-11.0) % Eos % (Auto) (0.0-7.0) % Baso % (Auto) (0.0-3.0) % Neut # (Auto) (1.7-7.0) K/uL Lymph # (Auto) (0.90-2.90) K/uL [place] # (Auto) (0.00-0.90) K/UL Eos # (Auto) (0.00-0.50) K/uL Baso # (Auto) (0.00-0.30) K/uL Abs Immat Gran (auto) (0.00-0.30) K/uL Carboxyhemoglobin 9.8 H (0.0-5.0) % Sodium (135-149) mmol/L Potassium (3.6-5.1) mmol/L Chloride (96-114) mmol/L Carbon Dioxide (20-32) mmol/L BUN (5-24) mg/dL Creatinine (0.5-1.5) mg/dL Estimated Creat Clear Estimated GFR ml/min Glucose (60-115) mg/dL Calcium (8.4-10.6) mg/dL Total Bilirubin (0.1-1.5) mg/dL Direct Bilirubin (0.0-0.5) mg/dL AST (12-35) U/L ALT (4-35) U/L Alkaline Phosphatase (40-150) U/L Total Protein (6.0-8.3) g/dL Albumin (3.3-5.0) g/dL TSH 3.110 (0.270-4.20) uIU/mL HCG, Qual (Negative) Salicylates < 1.0 L (1.0-10) mg/dL Urine Opiates Screen (Negative) Ur Oxycodone Screen (Negative) Urine Methadone Screen (Negative) Ur Propoxyphene Screen (Negative) Acetaminophen (10.0-30.0) ug/mL Ur Barbiturates Screen (Negative) U Tricyclic Antidepress (Negative) Ur Phencyclidine Scrn (Negative) Ur Amphetamines Screen (Negative) U Methamphetamines Scrn (Negative) U Benzodiazepines Scrn (Negative) Urine Cocaine Screen (Negative) U Marijuana (THC) Screen (Negative) Ur Drug Screen Comment Ethyl Alcohol (0.01-0.03) % SARS-CoV-2 (PCR) (Negative) Influenza Type A (PCR) (Negative) Influenza Type B (PCR) (Negative) RSV (PCR) (Negative) 06/03/22 06/03/22 06/03/22 Range/Units 23:30 23:30 23:30 WBC 8.02 (4.50-11.00) K/uL RBC 4.29 (4.00-5.20) m/uL Hgb 14.2 (12.0-16.0) gm/dL Hct 41.1 (33.0-51.0) % MCV 96 (80-100) fL MCH 33 (26-34) pg MCHC 35 (32-36) gm/dL RDW Coeff of Akhil 12.4 (11.5-15.5) % Plt Count 221 (140-440) K/uL Neut % (Auto) 51.7 (42.0-72.0) % Lymph % (Auto) 36.7 (20-44) % [place] % (Auto) 8.4 (0.0-11.0) % Eos % (Auto) 2.6 (0.0-7.0) % Baso % (Auto) 0.5 (0.0-3.0) % Neut # (Auto) 4.15 (1.7-7.0) K/uL Lymph # (Auto) 2.94 H (0.90-2.90) K/uL [place] # (Auto) 0.70 (0.00-0.90) K/UL Eos # (Auto) 0.21 (0.00-0.50) K/uL Baso # (Auto) 0.04 (0.00-0.30) K/uL Abs Immat Gran (auto) 0.01 (0.00-0.30) K/uL Carboxyhemoglobin (0.0-5.0) % Sodium 134 L (135-149) mmol/L Potassium 3.7 (3.6-5.1) mmol/L Chloride 105 (96-114) mmol/L Carbon Dioxide 19 L (20-32) mmol/L BUN 7 (5-24) mg/dL Creatinine 0.6 (0.5-1.5) mg/dL Estimated Creat Clear 107.10 Estimated GFR 113 ml/min Glucose 96 (60-115) mg/dL Calcium 8.9 (8.4-10.6) mg/dL Total Bilirubin 0.6 (0.1-1.5) mg/dL Direct Bilirubin 0.2 (0.0-0.5) mg/dL AST 47 H (12-35) U/L ALT 17 (4-35) U/L Alkaline Phosphatase 41 (40-150) U/L Total Protein 7.2 (6.0-8.3) g/dL Albumin 4.7 (3.3-5.0) g/dL TSH (0.270-4.20) uIU/mL HCG, Qual Negative (Negative) Salicylates (1.0-10) mg/dL Urine Opiates Screen (Negative) Ur Oxycodone Screen (Negative) Urine Methadone Screen (Negative) Ur Propoxyphene Screen (Negative) Acetaminophen < 10.0 L (10.0-30.0) ug/mL Ur Barbiturates Screen (Negative) U Tricyclic Antidepress (Negative) Ur Phencyclidine Scrn (Negative) Ur Amphetamines Screen (Negative) U Methamphetamines Scrn (Negative) U Benzodiazepines Scrn (Negative) Urine Cocaine Screen (Negative) U Marijuana (THC) Screen (Negative) Ur Drug Screen Comment Ethyl Alcohol 0.33 H* (0.01-0.03) % SARS-CoV-2 (PCR) (Negative) Influenza Type A (PCR) (Negative) Influenza Type B (PCR) (Negative) RSV (PCR) (Negative) 06/03/22 06/03/22 06/04/22 Range/Units 23:45 23:45 16:19 WBC (4.50-11.00) K/uL RBC (4.00-5.20) m/uL Hgb (12.0-16.0) gm/dL Hct (33.0-51.0) % MCV (80-100) fL MCH (26-34) pg MCHC (32-36) gm/dL RDW Coeff of Akhil (11.5-15.5) % Plt Count (140-440) K/uL Neut % (Auto) (42.0-72.0) % Lymph % (Auto) (20-44) % [place] % (Auto) (0.0-11.0) % Eos % (Auto) (0.0-7.0) % Baso % (Auto) (0.0-3.0) % Neut # (Auto) (1.7-7.0) K/uL Lymph # (Auto) (0.90-2.90) K/uL [place] # (Auto) (0.00-0.90) K/UL Eos # (Auto) (0.00-0.50) K/uL Baso # (Auto) (0.00-0.30) K/uL Abs Immat Gran (auto) (0.00-0.30) K/uL Carboxyhemoglobin (0.0-5.0) % Sodium (135-149) mmol/L Potassium (3.6-5.1) mmol/L Chloride (96-114) mmol/L Carbon Dioxide (20-32) mmol/L BUN (5-24) mg/dL Creatinine (0.5-1.5) mg/dL Estimated Creat Clear Estimated GFR ml/min Glucose (60-115) mg/dL Calcium (8.4-10.6) mg/dL Total Bilirubin (0.1-1.5) mg/dL Direct Bilirubin (0.0-0.5) mg/dL AST (12-35) U/L ALT (4-35) U/L Alkaline Phosphatase (40-150) U/L Total Protein (6.0-8.3) g/dL Albumin (3.3-5.0) g/dL TSH (0.270-4.20) uIU/mL HCG, Qual (Negative) Salicylates (1.0-10) mg/dL Urine Opiates Screen Negative (Negative) Ur Oxycodone Screen Negative (Negative) Urine Methadone Screen Negative (Negative) Ur Propoxyphene Screen Negative (Negative) Acetaminophen (10.0-30.0) ug/mL Ur Barbiturates Screen Negative (Negative) U Tricyclic Antidepress Negative (Negative) Ur Phencyclidine Scrn Negative (Negative) Ur Amphetamines Screen Negative (Negative) U Methamphetamines Scrn Negative (Negative) U Benzodiazepines Scrn Negative (Negative) Urine Cocaine Screen Negative (Negative) U Marijuana (THC) Screen Negative (Negative) Ur Drug Screen Comment See Note Ethyl Alcohol < 0.01 L (0.01-0.03) % SARS-CoV-2 (PCR) Negative SARS-CoV-2 (Negative) Influenza Type A (PCR) Negative PCR FLU A (Negative) Influenza Type B (PCR) Negative PCR FLU B (Negative) RSV (PCR) Negative PCR RSV (Negative) 06/04/22 Range/Units 16:19 WBC (4.50-11.00) K/uL RBC (4.00-5.20) m/uL Hgb (12.0-16.0) gm/dL Hct (33.0-51.0) % MCV (80-100) fL MCH (26-34) pg MCHC (32-36) gm/dL RDW Coeff of Akhil (11.5-15.5) % Plt Count (140-440) K/uL Neut % (Auto) (42.0-72.0) % Lymph % (Auto) (20-44) % [place] % (Auto) (0.0-11.0) % Eos % (Auto) (0.0-7.0) % Baso % (Auto) (0.0-3.0) % Neut # (Auto) (1.7-7.0) K/uL Lymph # (Auto) (0.90-2.90) K/uL [place] # (Auto) (0.00-0.90) K/UL Eos # (Auto) (0.00-0.50) K/uL Baso # (Auto) (0.00-0.30) K/uL Abs Immat Gran (auto) (0.00-0.30) K/uL Carboxyhemoglobin (0.0-5.0) % Sodium 137 (135-149) mmol/L Potassium 4.3 (3.6-5.1) mmol/L Chloride 107 (96-114) mmol/L Carbon Dioxide 26 (20-32) mmol/L BUN 16 (5-24) mg/dL Creatinine 0.7 (0.5-1.5) mg/dL Estimated Creat Clear 91.80 Estimated GFR 109 ml/min Glucose 162 H (60-115) mg/dL Calcium 9.3 (8.4-10.6) mg/dL Total Bilirubin (0.1-1.5) mg/dL Direct Bilirubin (0.0-0.5) mg/dL AST (12-35) U/L ALT (4-35) U/L Alkaline Phosphatase (40-150) U/L Total Protein (6.0-8.3) g/dL Albumin (3.3-5.0) g/dL TSH (0.270-4.20) uIU/mL HCG, Qual (Negative) Salicylates (1.0-10) mg/dL Urine Opiates Screen (Negative) Ur Oxycodone Screen (Negative) Urine Methadone Screen (Negative) Ur Propoxyphene Screen (Negative) Acetaminophen (10.0-30.0) ug/mL Ur Barbiturates Screen (Negative) U Tricyclic Antidepress (Negative) Ur Phencyclidine Scrn (Negative) Ur Amphetamines Screen (Negative) U Methamphetamines Scrn (Negative) U Benzodiazepines Scrn (Negative) Urine Cocaine Screen (Negative) U Marijuana (THC) Screen (Negative) Ur Drug Screen Comment Ethyl Alcohol (0.01-0.03) % SARS-CoV-2 (PCR) (Negative) Influenza Type A (PCR) (Negative) Influenza Type B (PCR) (Negative) RSV (PCR) (Negative) <Dayanara Neumann MD - Last Filed: 06/06/22 16:00> ECG Data Attestation: I personally reviewed and interpreted this ECG as follows: <Jung Zurita MD - Last Filed: 06/04/22 13:00> ECG interpretation date: 06/04/22 <Jung Zurita MD - Last Filed: 06/04/22 13:00> Interpretation: EKG shows normal sinus rhythm, no acute ST wave changes are noted, there is a repolarization abnormality however. QRS QT and AZ intervals are <Jung Zurita MD - Last Filed: 06/04/22 13:00> Discharge Plan Discharge Prescriptions: No Action levothyroxine 50 mcg tablet <Jung Zurita MD - Last Filed: 06/04/22 13:00> Follow Up/Referrals: John Hernandez MD [Primary Care Provider] - <Jung Zurita MD - Last Filed: 06/04/22 13:00>
--- OUTSIDE RECORDS SUMMARY | 2022-06-03 23:57 | XMS_ITS ---
:1975 Author Care Team Providers Name Role Phone Dwayne Arriaza Primary Care Provider Unavailable Allergies None recorded. Medications Name Status Start Date Stop Date ? ? bupropion HCl XL 150 mg 24 hr tablet, extended release Active ? Not available TK 1 T PO QAM ciprofloxacin 500 mg tablet Active ? Not available fluconazole 150 mg tablet Active ? Not av ailable levothyroxine 50 mcg tablet Active ? Not available lidocaine HCl 2 % mucosal jelly Active ? Not available APPLY TOPICALLY TO THE AFFECTED AREA EVERY 3 HOURS nitrofurantoin monohydrate/macrocrystals 100 mg capsule Active ? Not available TAKE 1 CAPSULE BY MOUTH TWICE DAILY FOR 7 DAYS phenazopyridine 200 mg tablet Active ? No t available TAKE 1 TABLET BY MOUTH THREE TIMES DAILY AFTER MEALS FOR 2 DAYS venlafaxine ER 150 mg capsule,extended release 24 hr Active ? Not available TK 1 C PO QD WAC venlafaxine ER 75 mg capsule,extended release 24 hr Active ? Not available TK 1 C PO QD WAC Problems None recorded. Procedures None recorded. Results Lab Results Date Name Specimen Result Interpretation Description Value Range Status Address ? ? Rapid SARS CoV 2 Ag, QL ? Results negative ? ? 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 [phone] 12/08/2020 Exposure to SARS-CoV-2; Sore Throat Symp daniela; Headache; Counseling [facility]-C: [id number] [place] [address], Ph. [phone] Social History None recorded. Vaccine List None recorded. Plan of Care Patient Instructions Keep a safe distance. ... ? Wear a mask. ... ? Encourage proper hygiene. ... ? The best way to protect yourself and o thers is to stay home for 14 days if you think you’ve been exposed to someone who has COVID-19. ? Watch for fever (100.4?F or higher), c ough, shortness of breath, or other symptoms of COVID-19. ? Consider getting tested for COVID-19. Even if you test negative for COVID-19 or feel healthy, you should still stay home (quarantine) for 14 days after your last contact with a person who has COV ID-19. This is because symptoms may appe ar 2 to 14 days after exposure to the virus, and some infected people never have symptoms but are still contagious. ? Do not travel until 14 days after your last possible exposure. ? Monitor yourself and household members for symptoms of COVID-19. ? Get information about COVID-19 testing if you feel sick. Look for emergency warning signs* for CO VID-19. If you have any of these signs, seek emergency medical care immediately ? Trouble breathing ? Persistent pain or pressure in the [address] ? New confusion ? Inability to wake or stay awake Keep a safe distance. ... ? Wear a mask. ... ? Encourage proper hygiene. ... ? The best way to protect yourself and o thers is to stay home for 14 days if you think you’ve been exposed to someone who has COVID-19. ? Watch for fever (100.4?F or higher), c ough, shortness of breath, or other symptoms of COVID-19. ? Consider getting tested for COVID-19. Even if you test negative for COVID-19 or feel healthy, you should still stay home (quarantine) for 14 days after your last contact with a person who has COV ID-19. This is because symptoms may appe ar 2 to 14 days after exposure to the virus, and some infected people never have symptoms but are still contagious. ? Do not travel until 14 days after your last possible exposure. ? Monitor yourself and household members for symptoms of COVID-19. ? Get information about COVID-19 testing if you feel sick. Look for emergency warning signs* for CO VID-19. If you have any of these signs, seek emergency medical care immediately ? Trouble breathing ? Persistent pain or pressure in the [address] ? New confusion ? Inability to wake or stay awake Reminders Provider Appointments None recorded. ? ? Lab None recorded. ? ? Referral None recorded. ? ? Procedures None recorded. ? ? Surgeries None recorded. ? ? Imaging None recorded. ? ? Vitals None recorded.
--- OUTSIDE RECORDS SUMMARY | 2022-06-03 23:57 | XMS_ITS ---
[...] ? [facility]: [place], Respiratory Specimen [id number] [facility] Past Encounters 12/22/2020 Sore Throat Symptom; Cough; Exposure to SARS-CoV-2; Counseling Dwayne Arriaza APRN-WELDING MACHINE OPERATOR/TENDER-C: [address] [place] [address], Ph. [phone] 12/08/2020 Exposure to SARS-CoV-2; Sore Throat Symp daniela; Headache; Counseling ERICH Power-C: [address] [place] [address], Ph. [phone] Social History None recorded. Vaccine List None [...]
[2022-06-03 23:58] LABS: Bilirubin Direct* 0.2 mg/dL (0.0-0.5); Bilirubin Total* 0.6 mg/dL (0.1-1.5); Carbon Dioxide* 19 mmol/L (20-32); Creatinine* 0.6 mg/dL (0.5-1.5); Estimated Glomerular Filt Rate 113 ml/min; Total Protein* 7.2 g/dL (6.0-8.3)
[2022-06-03 23:59] LABS: Alanine Aminotransferase* 17 U/L (4-35); Alkaline Phosphatase* 41 U/L (40-150); Aspartate Amino Transferase* 47 U/L (12-35); Blood Urea Nitrogen* 7 mg/dL (5-24); Calcium* 8.9 mg/dL (8.4-10.6); Glucose* 96 mg/dL (60-115)
[2022-06-04 00:02] LABS: HCG Qualitative* Negative (Negative)
[2022-06-04 00:03] LABS: Acetaminophen* < 10.0 ug/mL (10.0-30.0); Salicylate* < 1.0 mg/dL (1.0-10)
[2022-06-04 00:08] LABS: Ethanol* 0.33 % (0.01-0.03)
[2022-06-04 00:09] LABS: Amphetamine Screen Urine Negative (Negative); Barbiturate Screen Urine Negative (Negative); Benzodiazepines Screen Urine Negative (Negative); Cannabinoid Screen Urine Negative (Negative); Cocaine Screen Urine Negative (Negative); Methadone Screen Urine Negative (Negative); Methamphetamines Screen Urine Negative (Negative); Opiate Screen Urine Negative (Negative); Oxycodone Screen Urine Negative (Negative); Phencyclidine Screen Urine Negative (Negative); Tricyclic Antidepressant Urine Negative (Negative)
--- NOTE | 2022-06-04 00:09 | ED.NURSE ---
etoh elevated, md garcia updated. verbal to wait on DEC assessment.
[2022-06-04 00:38] LABS: PCR FLU A Negative PCR FLU A (Negative); PCR FLU B Negative PCR FLU B (Negative); PCR RSV Negative PCR RSV (Negative)
[2022-06-04 00:59] LABS: SARS PCR* Negative SARS-CoV-2 (Negative)
[2022-06-04 01:00] VITALS: RESP 16; O2SAT 96
[2022-06-04 03:00] VITALS: RESP 14; O2SAT 97
[2022-06-04 05:00] VITALS: PULSE 74; RESP 16; O2SAT 96
--- NOTE | 2022-06-04 06:59 | ED.NURSE ---
patient slept through night, cooperative on waking pt up for checks.
--- NOTE | 2022-06-04 08:45 | ED.NURSE ---
Pt sleeping on cart. Repositioning herself independently. Being monitored on camera due to safety.
[2022-06-04 09:59] VITALS: BP 123/76; PULSE 77; RESP 20; TEMP 36.8; O2SAT 97
--- NOTE | 2022-06-04 10:21 | ED.NURSE ---
DEC assessment started
--- NOTE | 2022-06-04 11:10 | ED.NURSE ---
Pt now on a 72 hour hold. Will need placement. Hold rights given to pt.
--- NOTE | 2022-06-04 12:40 | PC.NURSE ---
Faxed information to [place]. Social work updated. They will check in with us in a little while.
--- NOTE | 2022-06-04 15:05 | ED.NURSE ---
[facility] still reviewing. Information faxed at [phone]
--- NOTE | 2022-06-04 16:02 | ED.NURSE ---
Luis F Tobar and Murphy Barragan declines due to high risk of ETOH withdrawl. Needs to be clear of alcohol for 36-72 hours
--- NOTE | 2022-06-04 16:32 | PC.NURSE ---
[facility] has beds available. Faxed information over to [facility]. Will wait for them to review and get back to us.
[2022-06-04 16:37] LABS: Chloride* 107 mmol/L (96-114); Sodium* 137 mmol/L (135-149)
[2022-06-04 16:38] LABS: Potassium* 4.3 mmol/L (3.6-5.1)
[2022-06-04 16:40] LABS: Carbon Dioxide* 26 mmol/L (20-32); Creatinine* 0.7 mg/dL (0.5-1.5); Estimated Glomerular Filt Rate 109 ml/min
[2022-06-04 16:41] LABS: Blood Urea Nitrogen* 16 mg/dL (5-24); Calcium* 9.3 mg/dL (8.4-10.6); Glucose* 162 mg/dL (60-115)
[2022-06-04 16:43] VITALS: BP 121/74; PULSE 66; RESP 16; TEMP 36.6; O2SAT 97
[2022-06-04 16:47] LABS: Ethanol* < 0.01 % (0.01-0.03)
--- NOTE | 2022-06-04 17:00 | ED.NURSE ---
Pt was on the phone with her 18 year old son. Pt came out and stated that she must have misunderstood what actually happened and that her sone could give me more information. Spoke with son who stated that he wasn't around last evening until pt left. Son stated he did not want to give me any other information.
--- NOTE | 2022-06-04 17:33 | PC.NURSE ---
faxed most recent labs to [facility].
--- NOTE | 2022-06-04 18:10 | ED.NURSE ---
Meal tray ordered for pt.
[2022-06-04] MEDS: IBUPROFEN 200 MG TABLET 800 MG PO (18:13)
--- NOTE | 2022-06-04 20:25 | ED.NURSE ---
pt resting, watching TV.
--- NOTE | 2022-06-04 23:51 | ED.NURSE ---
pt appears to be sleeping, visible rise and fall of chest
[2022-06-05 07:47] VITALS: BP 124/83; PULSE 54; RESP 20; TEMP 36.1; O2SAT 99
--- NOTE | 2022-06-05 07:49 | ED.NURSE ---
VS updated. Pt aware of transfer to [facility].
--- NOTE | 2022-06-05 11:03 | ED.NURSE ---
Pt brought to [place] to shower and perform ADLs
[2022-06-05] MEDS: NICOTINE 21 MG PATCH 1 PATCH TRANSDERMA (13:52)
[2022-06-05 14:28] VITALS: BP 122/76; PULSE 56; RESP 16; TEMP 36.4; O2SAT 16
--- NOTE | 2022-06-05 15:06 | ED.NURSE ---
Pt and belongings transfered to [facility] via [facility]. Report given to nurses at [facility]
== END 2022-06-05 15:47 | disposition home or self-care (01) ==
PROVIDERS: Emergency Medicine; Family Medicine; Emergency Provider Family Medicine; PCP Family Medicine
DX: R45.851 Suicidal ideations (principal)
CPT/HCPCS: 36415; 80048; 80076; 80143; 80179; 80306; 82077; 82375; 84443; 84703; 85025; 87502; 87634; 87635; 93005; 99284; A9270; S4990

== ENCOUNTER 2022-06-05 14:45 | Outpatient (CLI) | payer BC, SELFPAY ==
--- OUTSIDE RECORDS SUMMARY | 2022-07-05 17:42 | XMS_ITS ---
:1975 Author Care Team Providers Name Role Phone Arsalan Dwayne Guo Primary Care Provider Unavailable Allergies None recorded. [...] ? [facility]: [place], Respiratory Specimen [address] [facility] Past Encounters None recorded. Social History None recorded. Vaccine List None recorded. Plan of Care Reminders Provider Appointments None recorded. ? ? Lab None recorded. ? ? Referral None recorded. ? ? Procedures None recorded. ? ? Surgeries None recorded. ? ? Imaging None recorded. ? ? Vitals None recorded.
== END 2022-06-05 14:46 | disposition home or self-care (01) ==
LOC: AMB 07-05 17:40
PROVIDERS: PCP Family Medicine; Visit Provider Family Medicine
DX: R45.851 Suicidal ideations (principal)
CPT/HCPCS: A0425; A0428

== ENCOUNTER 2022-10-07 10:41 | Outpatient (CLI) | payer BC, SELFPAY | END 2022-10-07 10:42 | disposition home or self-care (01) | PROVIDERS: PCP Family Medicine; Visit Provider Student in an Organized Health Care Education/Training Program | DX: R30.0 Dysuria (principal); N39.0 Urinary tract infection, site not specified | CPT/HCPCS: 87086; 87186 ==

== ENCOUNTER 2022-10-23 00:41 | Emergency (ER) | payer BC, SELFPAY ==
--- NOTE | 2022-10-23 00:48 | CRLHL7_ITS ---
For Patients: As a result of the Century Cures Act, medical imaging exams and procedure reports are released immediately into your electronic medical record. You may view this report before your referring provider. If you have questions, please contact your health care provider. INDICATION: Fall. TECHNIQUE: CT head without contrast. COMPARISON: Head CT 12/10/2017. FINDINGS: Small left frontal subgaleal contusion without underlying skull fracture. No acute intracranial hemorrhage, mass effect, or midline shift. The freeman-white matter differentiation is maintained. The ventricles are normal in size. No abnormal extra-axial fluid collection. The brain parenchymal volume is normal for the patient`s age. The paranasal sinuses and mastoid air cells are clear. Orbits are unremarkable. IMPRESSION: No evidence of an acute intracranial abnormality. Small left frontal subgaleal contusion without underlying skull fracture. Please note that all CT scans at this facility use dose modulation, iterative reconstruction, and/or weight-based dosing when appropriate to reduce radiation dose to as low as reasonably achievable. Dictated by Vincent Cervantes MD @ 10/23/2022 1:41:48 AM (Electronically Signed)
--- NOTE | 2022-10-23 00:48 | CRLHL7_ITS ---
For Patients: As a result of the Century Cures Act, medical imaging exams and procedure reports are released immediately into your electronic medical record. You may view this report before your referring provider. If you have questions, please contact your health care provider. INDICATION: Fall. TECHNIQUE: CT cervical spine without contrast. COMPARISON: CT cervical spine 12/10/2017. FINDINGS: Vertebrae: Straightening of the cervical lordosis there are no fractures or suspicious bony lesions. Discs and facet joints: Disc spaces and facets are within normal limits apart from mild to moderate right-sided facet arthrosis C3-4. Extraspinal findings: Prevertebral soft tissues, visualized airway, and visualized lungs are unremarkable. IMPRESSION: No acute bony abnormality within the cervical spine. Please note that all CT scans at this facility use dose modulation, iterative reconstruction, and/or weight-based dosing when appropriate to reduce radiation dose to as low as reasonably achievable. Dictated by Vincent Cervantes MD @ 10/23/2022 1:45:31 AM (Electronically Signed)
--- NOTE | 2022-10-23 00:49 | ED_ITS ---
HPI - Head Injury General Chief complaint: Fall/Minor Trauma Stated complaint: Slip on ice, left face bruised Time Seen by Provider: 10/23/22 00:48 History of Present Illness HPI Narrative: Pt is a 46 year old intoxicated woman who slipped on the ice after a night out. She was walking from the [facility] to try to get to [email or web address] before it closed and slipped on the ice near [place]. She fell face first striking her forehead on the ice. Pt did not lose consciousness. No seizure activity. Pt's fall was witnessed. She was able to get herself up and noted that her nose was bleeding and may also have been injured in the fall. Pt states that her tetanus shot is up to date. Pt states the pain is moderate. She does complain of some minor abrasions on her face as well. No neck pain. No other injuries or skin breakdown. Pt brought in by her friends. Related Data Home Medications Medication Instructions Recorded Confirmed levothyroxine 50 mcg tablet 50 mcg PO DAILY 06/03/22 10/23/22 Previous Rx's Medication Instructions Recorded fluconazole 150 mg tablet 150 mg PO Q3D 2 doses #2 tabs 10/07/22 Allergies Allergy/AdvReac Type Severity Reaction Status Date / Time latex Allergy Intermediate Hives Verified 10/23/22 00:54 Review of Systems Status of ROS: Reports: 10 or more systems reviewed and unremarkable except as noted in History and below [facility] Medical History Hypothyroidism Surgical History H/O LEEP History of abdominal hysterectomy Social History Smoking Status: Current every day smoker What tobacco products do you use: cigarettes Smoking packs per day: 2 Smoking cigarettes per day: 40.0 Do you use any of these nicotine containing products: None How often do you have a drink containing alcohol: 4 or more times a week How often do you have six or more drinks on one occasion: Daily or almost daily AUDIT-C Alcohol total score: 8 Non-prescribed substance use: denies use Exam Narrative: Exam Narrative: EXAM GENERAL: Patient appears comfortable and well. Intoxicated. Swelling and abrasions noted on the face and nose. Minor abrasions noted on the cheeks. EYES: No scleral icterus. ENT: Tympanic membranes and oropharynx normal. THYROID: no thyroid nodules or thyromegaly. LYMPH: No supraclavicular or cervical lymphadenopathy. SKIN: Visible skin seen during exam normal or with benign process only. EXT: No dependent lower extremity pedal edema. HEART: Regular rate and rhythm with no murmurs, rubs, or gallops. LUNGS: Clear to auscultation bilaterally with no crackles or wheezes. ABD: Soft, non tender, non distended. PSYCH: Good eye contact, speech is not pressured. Const: Vital Signs, click to edit/add: Vital Signs - 24 hr 10/23/22 00:50 Temperature 98.5 F Pulse Rate [Right Pulse Oximeter] 85 Respiratory Rate 18 Blood Pressure [Ri ght Upper Arm] 145/103 H Pulse Oximetry 99 Oxygen Delivery Me thod Room Air Course Course Hospital Course: CT of the head and neck ordered. Reevaluation(s) Reevaluation #1: CT of head and cervical spine upon my review show no acute findings Time: 02:00 Vital Signs Vital signs: Initial Vital Signs Temperature 98.5 F 10/23/22 00:50 Temperature Source Temporal Artery Scan 10/23/22 00:50 Pulse Rate 85 10/23/22 00:50 Respiratory Rate 18 10/23/22 00:50 Blood Pressure 145/103 H 10/23/22 00:50 Blood Pressure Mean 117 10/23/22 00:50 Blood Pressure Position Sitting 10/23/22 00:50 Pulse Oximetry 99 10/23/22 00:50 Oxygen Delivery Method 10/23/22 00:50 Vital Signs Temperature 98.5 F 10/23/22 00:50 Pulse Rate 85 10/23/22 00:50 Respiratory Rate 18 10/23/22 00:50 Blood Pressure 145/103 H 10/23/22 00:50 Pulse Oximetry 99 10/23/22 00:50 Oxygen Delivery Method 10/23/22 00:50 Temperature 98.5 F 10/23/22 00:50 Pulse Rate 85 10/23/22 00:50 Respiratory Rate 18 10/23/22 00:50 Blood Pressure 145/103 H 10/23/22 00:50 Pulse Oximetry 99 10/23/22 00:50 Oxygen Delivery Method 10/23/22 00:50 MDM - Head Injury MDM Narrative Medical decision making narrative: Pt is a 46 year old intoxcated woman who fell on the ice hitting her face. Her head and cervical spine CT were unremarkable upon my review. Pt's scrapes were dressed and pt will be released to family and friends to apply ice and rotate tylenol and motrin. Differential Diagnosis Differential diagnosis: Likely concussion without loss of consciousness, epidural hematoma, closed head injury, subarachnoid hematoma, subdural hematoma and concussion with loss of consciousness Discharge Plan Discharge Clinical Impression: Contusion Condition: Stable Instructions: Contusion in Adults (ED) Activity Level: No Restrictions Discharge Diet: Regular Prescriptions: No Action fluconazole 150 mg tablet 150 mg PO Q3D Qty: 2 0RF levothyroxine 50 mcg tablet 50 mcg PO DAILY Follow Up/Referrals: John Hernandez MD [Primary Care Provider] - Stand Alone Forms: [employer] Info Instructions
[2022-10-23 00:50] VITALS: BP 145/103; PULSE 85; RESP 18; TEMP 36.9; O2SAT 99; BMI 20.2
[2022-10-23 02:09] VITALS: BP 135/89; PULSE 85; RESP 18; TEMP 36.9; O2SAT 99
== END 2022-10-23 02:10 | disposition home or self-care (01) ==
PROVIDERS: Emergency Provider Internal Medicine; PCP Family Medicine
DX: S00.83XA Contusion of other part of head, initial encounter (principal); W00.0XXA Fall on same level due to ice and snow, initial encounter
CPT/HCPCS: 70450; 72125; 99283; 99284

== ENCOUNTER 2023-02-28 14:56 | Outpatient (CLI) | payer BC, SELFPAY | END 2023-02-28 14:57 | disposition home or self-care (01) | LOC: NFLDREF 03-02 07:05 | PROVIDERS: PCP Family Medicine; Referring Provider Family Medicine; Visit Provider Registered Nurse | DX: R30.0 Dysuria (principal); N39.0 Urinary tract infection, site not specified; B37.31 Acute candidiasis of vulva and vagina; N30.01 Acute cystitis with hematuria | CPT/HCPCS: 87086 ==

== ENCOUNTER 2023-07-06 09:10 | Outpatient (CLI) | payer BC, SELFPAY | END 2023-07-06 09:11 | disposition home or self-care (01) | LOC: NFLDREF 07-08 08:37 | PROVIDERS: PCP Family Medicine; Referring Provider Family Medicine; Visit Provider Nurse Practitioner Family | DX: R30.0 Dysuria (principal); N30.00 Acute cystitis without hematuria; B37.9 Candidiasis, unspecified | CPT/HCPCS: 87086 ==

== ENCOUNTER 2023-10-03 10:00 | Outpatient (CLI) | payer BC, SELFPAY ==
--- OUTSIDE RECORDS SUMMARY | 2023-10-03 10:08 | XMS_ITS | Data Portability ---
Author Name Unknown Address [address] [place] [address] Phone [phone] [facility], [facility] Address [address] [place] [id number] Assessment No assessment recorded. Plan of Treatment Reminders Order Date Submit Date Provider Last Modified By Organization Details Last Modified Time Details Appointments None recorded. Lab rapid SARS CoV 2 Ag, QL [place], respiratory specimen [address], [address] [place] [address], [id number], 12:22:13 rapid SARS CoV 2 Ag, QL [place], respiratory specimen [address], [address] [place] [address], [id number], 15:45:37 rapid SARS CoV 2 Ag, QL [place], respiratory specimen [address], [address] [place] [address], [phone], 12:24:20 rapid SARS CoV 2 Ag, QL [place], respiratory specimen 2020 [email or web address] Not available 20:40:25 Referral None recorded. Procedures None recorded. Surgeries None recorded. Imaging None recorded. Medication Orders None recorded. Patient TargetsNo targets recorded. Patient Instructions Encounter Date Encounter Id Patient Instructions Last Modified By Organization Details Last Modified Time 12/22/2020 [id number] Keep a safe distance. ... ?? Wear a mask. ... ?? Encourage proper hygiene. ... ?? The best way to protect yourself and others is to stay home for 14 days if you think you? ve been exposed to someone who has COVID-19. ?? Watch for fever (100.4??F or higher), cough, shortness of breath, or other symptoms of COVID-19. ?? Consider getting tested for COVID-19. Even if you test negative for COVID-19 or feel healthy, you should still stay home (quarantine) for 14 days after your last contact with a person who has COVID-19. This is because symptoms may appear 2 to 14 days after exposure to the virus, and some infected people never have symptoms but are still contagious. ?? Do not travel until 14 days after your last possible exposure. ?? Monitor yourself and household members for symptoms of COVID-19. ?? Get information about COVID-19 testing if you feel sick. Look for emergency warning signs* for COVID-19. If you have any of these signs, seek emergency medical care immediately ?? Trouble breathing ?? Persistent pain or pressure in the chest ?? New confusion ?? Inability to wake or stay awake [email or web address] Not available 12/22/2020 12:22:29 12/08/2020 [id number] Keep a safe distance. ... ?? Wear a mask. ... ?? Encourage proper hygiene. ... ?? The best way to protect yourself and others is to stay home for 14 days if you think you? ve been exposed to someone who has COVID-19. ?? Watch for fever (100.4??F or higher), cough, shortness of breath, or other symptoms of COVID-19. ?? Consider getting tested for COVID-19. Even if you test negative for COVID-19 or feel healthy, you should still stay home (quarantine) for 14 days after your last contact with a person who has COVID-19. This is because symptoms may appear 2 to 14 days after exposure to the virus, and some infected people never have symptoms but are still contagious. ?? Do not travel until 14 days after your last possible exposure. ?? Monitor yourself and household members for symptoms of COVID-19. ?? Get information about COVID-19 testing if you feel sick. Look for emergency warning signs* for COVID-19. If you have any of these signs, seek emergency medical care immediately ?? Trouble breathing ?? Persistent pain or pressure in the chest ?? New confusion ?? Inability to wake or stay awake [email or web address] Not available 12/22/2020 12:26:41 11/26/2020 [id number] Keep a safe distance. ... ?? Wear a mask. ... ?? Encourage proper hygiene. ... ?? The best way to protect yourself and others is to stay home for 14 days if you think you? ve been exposed to someone who has COVID-19. ?? Watch for fever (100.4??F or higher), cough, shortness of breath, or other symptoms of COVID-19. ?? Consider getting tested for COVID-19. Even if you test negative for COVID-19 or feel healthy, you should still stay home (quarantine) for 14 days after your last contact with a person who has COVID-19. This is because symptoms may appear 2 to 14 days after exposure to the virus, and some infected people never have symptoms but are still contagious. ?? Do not travel until 14 days after your last possible exposure. ?? Monitor yourself and household members for symptoms of COVID-19. ?? Get information about COVID-19 testing if you feel sick. Look for emergency warning signs* for COVID-19. If you have any of these signs, seek emergency medical care immediately ?? Trouble breathing ?? Persistent pain or pressure in the chest ?? New confusion ?? Inability to wake or stay awake [email or web address] Not available 12/22/2020 12:24:28 09/05/2020 [id number] Keep a safe distance. ... ?? Wear a mask. ... ?? Encourage proper hygiene. ... ?? The best way to protect yourself and others is to stay home for 14 days if you think you? ve been exposed to someone who has COVID-19. ?? Watch for fever (100.4??F or higher), cough, shortness of breath, or other symptoms of COVID-19. ?? Consider getting tested for COVID-19. Even if you test negative for COVID-19 or feel healthy, you should still stay home (quarantine) for 14 days after your last contact with a person who has COVID-19. This is because symptoms may appear 2 to 14 days after exposure to the virus, and some infected people never have symptoms but are still contagious. ?? Do not travel until 14 days after your last possible exposure. ?? Monitor yourself and household members for symptoms of COVID-19. ?? Get information about COVID-19 testing if you feel sick. Look for emergency warning signs* for COVID-19. If you have any of these signs, seek emergency medical care immediately ?? Trouble breathing ?? Persistent pain or pressure in the chest ?? New confusion ?? Inability to wake or stay awake [email or web address] Not available 11/02/2020 20:40:46 Reason for Referral None Reported. Results Created Date Observation Date Name Description Value Unit Range Abnormal Flag LastModifiedBy Organization Detail LastModifiedTime 12/08/2020 rapid SARS CoV 2 Ag, QL [place], respi rator y speci men Results negati ve Not Available [facility] [address] [place] [address], [phone], 12/08/2020 15:45:23 Result Notes None recorded. Medical Equipment None Reported. Medications Name Sig Start Date Stop Date Status Note LastModified by Organization Details LastModified Time venlafaxine ER 75 mg capsule,exten ded release 24 hr TK 1 C PO QD WAC active Not Available Not Available No t Available fluconazole 150 mg tablet TK 1 T PO TODAY. REPEAT IN 1 WK active Not Available Not Available No t Available phenazopyridi ne 200 mg tablet TAKE 1 TABLET BY MOUTH THREE TIMES DAILY AFTER MEALS FOR 2 DAYS active Not Available Not Available No t Available venlafaxine ER 150 mg capsule,exten ded release 24 hr TK 1 C PO QD WAC active Not Available Not Available No t Available lidocaine HCl 2 % mucosal jelly APPLY TOPICALLY TO THE AFFECTED AREA EVERY 3 HOURS active Not Available Not Available No t Available ciprofloxacin 500 mg tablet active Not Available Not Availabl e Not Available levothyroxine 50 mcg tablet TAKE 1 TABLET BY MOUTH BEFORE BREAKFAST active Not Available Not Available No t Available bupropion HCl XL 150 mg 24 hr tablet, extended release TK 1 T PO QAM active Not Available Not Available No t Available nitrofurantoi n monohydrate/m acrocrystals 100 mg capsule TAKE 1 CAPSULE BY MOUTH TWICE DAILY FOR 7 DAYS active Not Available Not Available No t Available Vitals Date Recorded Heart rate Body temperature Oxygen saturation Oxygen saturation in Arterial blood by Pulse oximetry Provider Name and Address Organization Details Last Updated DateTime 09/05/2020 87 /min 98.3 [degF] 99 % 99 % Mila HernándezMARIFER long [facility] 12:22:45 Social History None recorded. Functional Status None recorded. Mental Status None recorded. Family History Nothing Reported. Medical History No medical history recorded. Gynecological HistoryNo gynecological history recorded. Obstetrics History GPAL:G 0 P 0 0 0 0 Past Encounters Encounter ID Performer Location Encounter Start Date Encounter Closed Date Diagnosis/Indication [id number] BEENA [address]son [address] [address] 09/05/2020 12:20:49 11/02/2020 20:41:01 Exposure to SARS-CoV-2 Counseling [id number] BEENA S[address]son [address] [address] 11/26/2020 14:07:27 11/26/2020 14:50:41 Sore throat Fatigue Headache Exposure to SARS-CoV-2 Counseling [id number] BEENA S[address]son [address] [address] 12/08/2020 15:13:05 12/08/2020 15:13:15 Exposure to SARS-CoV-2 Sore throat Headache Counseling [id number] Dwayne Arriaza DNP, MEKA, [facility] [address] [address] 12/22/2020 11:59:57 12/22/2020 12:48:37 Sore throat Cough Exposure to SARS-CoV-2 Counseling Health Concerns Section Related Observation LastModified by Organization Detai ls LastModified Time None Recorded Concern Status LastModified by Organization Details LastModified Time None Recorded Advance Directives Directive None Recorded Payers Encounter Date Sequence Insurance Name Policy Number Policy Smith Covered Member ID Smith Member ID Guarantor Name 12/22/2020 1 [place] [id number] Griselda Wolf [id number] Griselda Wolf 12/08/2020 1 [place] [id number] Griselda Wolf [id number] Griselda Wolf 11/26/2020 1 [place] [id number] Griselda Wolf [id number] Griselda Wolf 09/05/2020 1 [place] [id number] Griselda Wolf [id number] Griselda Wolf Notes Date Note Type Note Provider Name and Address Organization Details Recorded Time 09/05/2020 text/html HPI Notes: Patient is here for COVID19 testing after exposure. Patient denies cough ,no fevers / chills, no SOB. patient does not have members of the household at increased risk of complications; patient does have resources to access food and other necessities; patient does have separate bedroom and bathroom for patient; patient is able to adhere to hand hygiene and cough etiquette practices BEENA Sorenson [id number] [place] [address], [employer] 11/02/2020 20:42:49 11/26/2020 text/html HPI Notes: Patient si here for covid-19 testing after exposure. Reported sore throat,fatigue and headache. BEENA Sorenson [id number] [address] [address], [employer] 12/22/2020 12:24:33 12/08/2020 text/html HPI Notes: Patient is here for covid-19 testing after exposure. Reported sore throat, headaches and fatigue. BEENA Sorenson [id number] [address] [place] [address], [employer] 12/22/2020 12:26:46 12/22/2020 text/html HPI Notes: Patient is here for covid-19 testing after exposure. Reported cough, sore throat and headache. Pt denies shortness of breath Dwayne Arriaza DNP, MOTHERS HELPER, PIPE LAYER-[facility] [address] [address] [address], [employer] 01/29/2021 11:23:32 OBGyn Episode No OBEpisode recorded.
--- NOTE | 2023-10-03 10:58 | W.ANESCHARGE ---
Anesthesia Charges Start Date/Time Anesthesia Start Date: 10/03/23 Anesthesia Start Time: 10:30 Stop Date/Time Anesthesia Stop Date: 10/03/23 Anesthesia Stop Time: 10:54
--- NOTE | 2023-10-03 12:55 | W.ANESCHARGE ---
Anesthesia Charges Start Date/Time Anesthesia Start Date: 10/03/23 Anesthesia Start Time: 10:30 Stop Date/Time Anesthesia Stop Date: 10/03/23 Anesthesia Stop Time: 10:54
== END 2023-10-03 10:01 | disposition home or self-care (01) ==
LOC: OP CLINIC 10:02
PROVIDERS: PCP Family Medicine; Visit Provider Internal Medicine Gastroenterology
DX: R19.5 Other fecal abnormalities (principal); K64.8 Other hemorrhoids
CPT/HCPCS: 00811; 00812; 45378; J2704

== ENCOUNTER 2023-10-26 08:27 | Outpatient (CLI) | payer BC, SELFPAY | END 2023-10-26 08:28 | disposition home or self-care (01) | LOC: NFLDREF 11-08 20:55 | PROVIDERS: PCP Family Medicine; Referring Provider Family Medicine; Visit Provider Nurse Practitioner Family | DX: R30.0 Dysuria (principal) | CPT/HCPCS: 87086 ==

== ENCOUNTER 2024-04-19 16:03 | Outpatient (CLI) | payer BC, SELFPAY ==
--- OUTSIDE RECORDS SUMMARY | 2024-04-21 23:59 | XMS_ITS | Data Portability ---
[facility] Organization [facility], [facility] Address [address] [place] [id number] Assessment No assessment recorded. Plan of Treatment Reminders Order Date Submit Date Provider Last Modified By Organization Details Last Modified Time Details Appointments None recorded. Lab rapid SARS CoV 2 Ag, QL IA, respiratory specimen 2020 021 [email or web address] Not available 20:40:25 rapid SARS CoV 2 Ag, QL IA, respiratory specimen 2020 021 [email or web address] [facility], [address] [place] [address], [id number], 12:24:20 rapid SARS CoV 2 Ag, QL IA, respiratory specimen [address], [address] [place] [address], [id number], 15:45:37 rapid SARS CoV 2 Ag, QL IA, respiratory specimen [address], [address] [place] [address], [id number], 12:22:13 Referral None recorded. Procedures None recorded. Surgeries None recorded. Imaging None recorded. Medication Orders None recorded. Patient TargetsNo targets recorded. Patient Instructions Encounter Date Encounter Id Patient Instructions Last Modified By Organization Details Last Modified Time 09/05/2020 [id number] Keep a safe distance. ... [...] ?? Inability to wake or stay awake [email or web address] Not available 11/02/2020 20:40:46 11/26/2020 2720 Keep a safe distance. ... [...] ?? Inability to wake or stay awake [email or web address] Not available 12/22/2020 12:24:28 12/08/2020 2969 Keep a safe distance. ... [...] ?? Inability to wake or stay awake [email or web address] Not available 12/22/2020 12:26:41 12/22/2020 3323 Keep a safe distance. ... ?? Wear [...] ?? Inability to wake or stay awake [email or web address] Not available 12/22/2020 12:22:29 Reason for Referral None Reported. Results Created Date Observation Date Name Description Value Unit Range Abnormal Flag Note LastModifiedBy Organization Detail LastModifiedTime 12/08/2020 rapid SARS CoV 2 Ag, QL IA, respi rator y speci men Results negati ve Not Available [facility] [address] [place] [address], [id number], 12/08/2020 15:45:23 Result Notes None recorded. Medical [...] 98.3 [degF] 99 % 99 % Mila Vasquez MARIFER Elliot Trapster [facility] 12:22:45 Social History None recorded. Functional Status None recorded. Mental Status None recorded. Family History Nothing Reported. Medical History No medical history recorded. Gynecological HistoryNo gynecological history recorded. Obstetrics History GPAL:G 0 P 0 0 0 0 Past Encounters Encounter ID Performer Location Encounter Start Date Encounter Closed Date Diagnosis/Indication Diagnosis SNOMED-CT Code Diagnosis ICD10 Code [id number] BEENA Sorenson [address] [address] 09/05/2020 12:20:49 11/02/2020 20:41:01 Exposure to SARS-CoV-2 060007814 Z20.822 Counseling 018982754 Z71 .9 [id number] BEENA Sorenson Elliot [address] [address] 11/26/2020 14:07:27 11/26/2020 14:50:41 Sore throat 343605556 J02.9 Fatigue 43708509 R53.83 Headache 10363222 R51.9 Exposure t o SARS-CoV-2 027449311 Z20.822 Counseling 298389848 Z71 .9 [id number] BEENA Sorenson [address] [address] 12/08/2020 15:13:05 12/08/2020 15:13:15 Exposure to SARS-CoV-2 391891121 Z20.822 Sore throat 352907079 J0 2.9 Headache 12497346 R51.9 Counseling 126133489 Z71 .9 [id number] Dwayne Arriaza DNP, CHILD CARE SPECIALIST, TECHNICAL LEAD-BC [place] [address] [address] 12/22/2020 11:59:57 12/22/2020 12:48:37 Sore throat 662087715 J02.9 Cough 29784093 R05 Exposure t o SARS-CoV-2 551567859 Z20.822 Counseling 565951755 Z71 .9 Health Concerns Section Related Observation LastModified by Organization Detai ls LastModified Time None Recorded Concern Status LastModified by Organization Details LastModified Time None Recorded Advance Directives Directive None Recorded Payers Encounter Date Sequence Insurance Name Policy Number Policy Smith Covered Member ID Smith Member ID Guarantor Name 09/05/2020 1 [place] [id number] Griselda Wolf [id number] Griselda Wolf 11/26/2020 1 [place] [id number] Griselda Wolf [id number] Griselda Wolf 12/08/2020 1 [place] [id number] Griselda Wolf [id number] Griselda Wolf 12/22/2020 1 [place] [id number] Griselda Wolf [id number] Griselda Wolf Notes Date Note Type [...] hygiene and cough etiquette practices BEENA Sorenson [address] [place] [place], [address], [employer] 11/02/2020 20:42:49 11/26/2020 text/html HPI Notes: Patient si here for covid-19 testing after exposure. Reported sore throat,fatigue and headache. BEENA Sorenson [address] [place], [address], [employer] 12/22/2020 12:24:33 12/08/2020 text/html HPI Notes: Patient is here for covid-19 testing after exposure. Reported sore throat, headaches and fatigue. BEENA Sorenson [address] [place], [address], [employer] 12/22/2020 12:26:46 12/22/2020 text/html HPI Notes: Patient is here for covid-19 testing after exposure. Reported cough, sore throat and headache. Pt denies shortness of breath Dwayne Arriaza, JORDAN, CHILD CARE SPECIALIST, TECHNICAL LEAD-BC [address] [place], [address], [employer] 01/29/2021 11:23:32 OBGyn Episode No OBEpisode recorded.
== END 2024-04-19 16:04 | disposition home or self-care (01) ==
LOC: NFLDREF 04-21 23:56
PROVIDERS: Visit Provider Nurse Practitioner Family
DX: R30.0 Dysuria (principal); B96.20 Unspecified Escherichia coli [E. coli] as the cause of diseases classified elsewhere
CPT/HCPCS: 87086; 87186

== ENCOUNTER 2024-08-02 12:46 | Emergency (ER) | payer BC, SELFPAY ==
[2024-08-02 13:01] VITALS: BP 145/121; PULSE 94; RESP 16; TEMP 36.8; O2SAT 99; BMI 20.4
--- NOTE | 2024-08-02 13:08 | CRLHL7_ITS ---
For Patients: As a result of the Cures Act, medical imaging exams and procedure reports are released immediately into your electronic medical record. You may view this report before your referring provider. If you have questions, please contact your health care provider. INDICATION: Chest pain. TECHNIQUE: Chest/right ribs, 3 views. COMPARISON: None. FINDINGS: Cardiovascular and mediastinum: Heart size and vasculature are normal in caliber and appearance. Lungs and pleural spaces: Lungs are clear. No sign of infiltrate or mass. No sign of pleural effusion. No pneumothorax. Bones and soft tissues: Acute nondisplaced right 11th rib fracture. IMPRESSION: Acute nondisplaced right 11th rib fracture. Dictated by Alvin Kelly MD @ 08/02/2024 1:53:11 PM (Electronically Signed)
--- NOTE | 2024-08-02 13:26 | ED.GENADULT ---
HPI - General Adult General Time Seen by Provider: 13:26 Date Seen: 08/02/24 Chief complaint: Shortness of Breath/Dyspnea Stated complaint: Fall/rib pain difficulty breathing Time Seen by Provider: 08/02/24 13:23 Source: patient Mode of arrival: ambulatory Limitations: no limitations History of Present Illness HPI narrative: This 48-year-old female is ambulatory into the ER with concern of right back pain. She fell asleep on the couch Tuesday, woke up at 2:30 a.m. and went to bed. She accidentally thought the night stand was actually her bed, fell back into it hitting her left back area on the pointed corner of the nightstand, did not make it into the bed. She has a scrape and a bruise on her right low back. In this area where the injury is, it hurts to cough, move, sit knees, take a deep breath. She does smoke daily, admits to daily alcohol use. She notes that it even hurts to have a bowel movement, hurts inside the back in this area. She has used ibuprofen, did not take any today as she wanted to be at her baseline for us to see. She has tried icy hot patches. Related Data Home Medications ?Medication ?Instructions ?Recorded ?Confirmed levothyroxine 50 mcg tablet 50 mcg PO DAILY 06/03/22 08/02/24 Previous Rx's ?Medication ?Instructions ?Recorded fluconazole 150 mg tablet 150 mg PO Q3D 2 doses #2 tabs 04/19/24 oxycodone 5 mg tablet 5 mg PO Q6H PRN pain #16 tabs 08/02/24 Allergies Allergy/AdvReac Type Severity Reaction Status Date / Time latex Allergy Intermediate Hives Verified 08/02/24 13:05 fluoxetine (From Prozac) Allergy Verified 08/02/24 13:05 ranitidine Allergy Verified 08/02/24 13:05 Review of Systems Status of ROS: Reports: 6 or more systems reviewed and unremarkable except as noted in History and below [facility] Medical History Hypothyroidism ?E03.9 - Hypothyroidism, unspecified (ICD-10) Surgical History H/O LEEP ?Z98.890 - Other specified postprocedural states (ICD-10) History of abdominal hysterectomy ?Z90.710 - Acquired absence of both cervix and uterus (ICD-10) Social History Smoking Status: Current some day smoker What tobacco products do you use: cigarettes Smoking packs per day: 2 Smoking cigarettes per day: 40.0 Do you use any of these nicotine containing products: None Second hand tobacco smoke exposure: No How often do you have a drink containing alcohol: 4 or more times a week How many standard drinks containing alcohol do you have on a typical day: 5 or 6 How often do you have six or more drinks on one occasion: Monthly AUDIT-C Alcohol total score: 8 Non-prescribed substance use: denies use Exam Const: Vital Signs, click to edit/add: Vital Signs - 24 hr 08/02/24 13:01 08/02/24 15:27 Temperature 98.3 F 98.3 F Pulse Rate [Pulse Oximeter] 94 94 Respiratory Rate 16 16 Blood Pressure [Ri ght Upper Arm] 145/121 H 145/121 H Pulse Oximetry 99 Oxygen Delivery Me thod Room Air She is alert, interactive, no apparent distress. Slow to move. Sclera clear, conjugate gaze, atraumatic face, speech is normal. No midline tenderness over her back but she has right paraspinous tenderness in the area of visible traumatic change on her back. There is an oblong central reddish to pinkish area that may have been an abrasion that seems to be healing along the left mid lumbar back, tender in this area; there is surrounding purplish bruising. She does not have any fluctuance in this area. The left lower ribs and the right lower ribs are not tender at this time, the area of visible injury is below the rib area. Lungs are clear but distant breath sounds, no wheezing or crackles, no tachypnea. CV regular rate and rhythm, no murmur, normal S1-S2, no S3-S4. Abdomen is soft, nontender, nondistended, no organomegaly. Documenting provider has reviewed patient's vital signs: yes Course Course ED Course: Nursing staff had ordered three view chest x-ray with right ribs on arrival. After examination, I do think we need to consider doing abdominal CT and ensuring no retroperitoneal bleeding, no complication of the fall. Will reconstruct lumbar spine. Patient does endorse significant alcohol intake which could confound her injury. Will get baseline labs on her as well including coags. She states she does not take any blood thinners. Reevaluation(s) Time of Reevaluation #1: 15:05 Reevaluation #1: Have given patient copies of her chest x-ray report showing 11th rib fracture, her CT reports showing rib fractures on the right of 11 and 12, transverse process fractures of L1-L2. She really states she is not having any midline pain of her back. It is more the right back and pain with breathing suggestive of respiratory type pain/chest wall. 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 Discussed that she cannot use narcotics at work or while driving but will give her some for nighttime. She is going to need to be extremely careful with alcohol use and narcotics, we discussed the risks of this. She may need to significantly cut down on her alcohol use if using the narcotics. Vital Signs Vital signs: Initial Vital Signs Temperature 98.3 F 08/02/24 13:01 Temperature Source Temporal Artery Scan 08/02/24 13:01 Pulse Rate 94 08/02/24 13:01 Pulse Rhythm Regular 08/02/24 13:01 Pulse Strength 3+ Normal 08/02/24 13:01 Respiratory Rate 16 08/02/24 13:01 Blood Pressure 145/121 H 08/02/24 13:01 Blood Pressure Mean 129 H 08/02/24 13:01 Blood Pressure Position Sitting 08/02/24 13:01 Pulse Oximetry 99 08/02/24 13:01 Oxygen Delivery Method Room Air 08/02/24 13:01 Vital Signs Temperature 98.3 F 08/02/24 13:01 Pulse Rate 94 08/02/24 13:01 Respiratory Rate 16 08/02/24 13:01 Blood Pressure 145/121 H 08/02/24 13:01 Pulse Oximetry 99 08/02/24 13:01 Oxygen Delivery Method Room Air 08/02/24 13:01 Temperature 98.3 F 08/02/24 15:27 Pulse Rate 94 08/02/24 15:27 Respiratory Rate 16 08/02/24 15:27 Blood Pressure 145/121 H 08/02/24 15:27 Pulse Oximetry 99 08/02/24 13:01 Oxygen Delivery Method Room Air 08/02/24 13:01 Medical Decision Making Lab Data Lab results reviewed: Yes I reviewed the patient's lab results Labs: Lab Results 08/02/24 Range/Units 13:55 WBC 7.35 (4.50-11.00) K/uL RBC 4.27 (4.00-5.20) m/uL Hgb 13.8 (12.0-16.0) gm/dL Hct 41.2 (33.0-51.0) % MCV 97 (80-100) fL MCH 32 (26-34) pg MCHC 34 (32-36) gm/dL RDW Coeff of Akhil 12.3 (11.5-15.5) % Plt Count 222 (140-440) K/uL Neut % (Auto) 63.5 (42.0-72.0) % Lymph % (Auto) 26.0 (20-44) % Osborne % (Auto) 8.3 (0.0-11.0) % Eos % (Auto) 1.5 (0.0-7.0) % Baso % (Auto) 0.3 (0.0-3.0) % Neut # (Auto) 4.67 (1.7-7.0) K/uL Lymph # (Auto) 1.91 (0.90-2.90) K/uL Osborne # (Auto) 0.60 (0.00-0.90) K/UL Eos # (Auto) 0.11 (0.00-0.50) K/uL Baso # (Auto) 0.02 (0.00-0.30) K/uL Abs Immat Gran (auto) 0.03 (0.00-0.30) K/uL Imm/Tot Granulo (auto) 0.4 % INR 0.89 L (0.91-1.10) APTT 25 (23-33) Seconds Sodium 134 L (135-149) mmol/L Potassium 4.7 (3.6-5.1) mmol/L Chloride 103 (96-114) mmol/L Carbon Dioxide 27 (20-32) mmol/L Anion Gap 4 L (7-15) mEq/L BUN 13 (5-24) mg/dL Creatinine 0.6 (0.5-1.5) mg/dL Estimated Creat Clear 109.06 Estimated GFR 112 ml/min Glucose 93 (60-115) mg/dL Calcium 9.6 (8.4-10.6) mg/dL Total Bilirubin 0.7 (0.1-1.5) mg/dL AST 27 (12-35) U/L ALT 18 (4-35) U/L Alkaline Phosphatase 45 (40-150) U/L Total Protein 7.0 (6.0-8.3) g/dL Albumin 4.5 (3.3-5.0) g/dL Ethyl Alcohol < 0.00 L (0.01-0.03) % Imaging Data Chest x-ray: Attestation: I have reviewed the pertinent imaging results. Radiologist's impression: Patient: SLAVA ISAAC Facility:?[facility] Patient ID:?[id number] Site Patient ID:?[id number]. Site :?1975 Study:?XRay-Chest Right RIBS-08/02/2024 1:48:12 PM Ordering Physician:Yovana Urbano Final Report: INDICATION: Chest pain. TECHNIQUE: Chest/right ribs, 3 views. COMPARISON: None. FINDINGS: Cardiovascular and mediastinum: Heart size and vasculature are normal in caliber and appearance. Lungs and pleural spaces: Lungs are clear. No sign of infiltrate or mass. No sign of pleural effusion. No pneumothorax. Bones and soft tissues: Acute nondisplaced right 11th rib fracture. IMPRESSION: Acute nondisplaced right 11th rib fracture. Dictated by Alvin Kelly MD @ 08/02/2024 1:53:11 PM (Electronic Signature) CT scan - abdomen: Attestation: I have reviewed the pertinent imaging results. Radiologist's impression: Patient: SLAVA ISAAC Facility:?[facility] Patient ID:?[id number] Site Patient ID:?[id number]. Site :?1975 Study:?CT-Abdomen/Pelvis W/ 64CC ISOVUE 370-08/02/2024 2:25:12 PM Ordering Physician:?Thien Nichole Final Report: INDICATION: Lower back pain, fall, not better.. Injury to left posterior back. TECHNIQUE: CT abdomen and pelvis acquired with 100 cc Omnipaque 350 IV contrast. COMPARISON: None. FINDINGS: Lower chest: Unremarkable. Liver: Unremarkable. Normal in size and attenuation. No suspicious masses. Gallbladder and bile ducts: Unremarkable. No stones or inflammation. No biliary dilatation. Pancreas: Unremarkable. No mass or inflammation. Spleen: Unremarkable. Normal in size. No masses. Adrenal glands: Unremarkable. No nodules. Kidneys: Unremarkable. No suspicious masses, stones, or hydronephrosis. GI tract: No bowel obstruction. Appendix is not visualized. Vasculature: Abdominal aorta is normal in caliber. Mesenteric arteries are patent. Lymph nodes: No lymphadenopathy. Peritoneum/Abdominal Wall: Probable prior anterior abdominal wall hernia repair. Tiny fat containing hernias along the ventral abdomen. No sign of mass or infiltration. No free air or significant free fluid. Pelvis: Unremarkable. Bones: Fracture of the right L1 and L2 transverse processes. In addition, there is fracture of the right 11th and 12th ribs posteriorly (2/33, 38, 47, 36). IMPRESSION: 1. Fractures of the RIGHT L1, L2 transverse processes as well as the right posterior 11th and 12th ribs. 2. No acute intra-abdominal process identified. Please note that all CT scans at this facility use dose modulation, iterative reconstruction, and/or weight-based dosing when appropriate to reduce radiation dose to as low as reasonably achievable. Dictated by Gene Santillan MD @ 08/02/2024 2:43:01 PM (Electronic Signature) CT- Other: Attestation: I have reviewed the pertinent imaging results. Radiologist's impression: Patient: SLAVA ISAAC Facility:?[facility] Patient ID:?[id number] Site Patient ID:?[id number]. Site :?1975 Study:?CT-Spine Lumbar WITHOUT-08/02/2024 2:25:47 PM Ordering Physician:Eddie Nichole Final Report: INDICATION: Lower back pain. Fall.. TECHNIQUE: CT lumbar spine without contrast. COMPARISON: None. FINDINGS: Vertebrae: Alignment is normal. There are fractures of the right L1 and L2 transverse processes. In addition, fractures of the right 11th and 12th ribs posteriorly, better appreciated on concurrent CT of the abdomen and pelvis. Discs and facet joints: Disc spaces and facets are within normal limits. Extraspinal findings: Prevertebral soft tissues and visualized retroperitoneum are unremarkable. IMPRESSION: Fractures of the RIGHT L1 and L2 transverse processes. In addition, fractures of the right 11th and 12th ribs posteriorly. Otherwise, lumbar spine is unremarkable. Please note that all CT scans at this facility use dose modulation, iterative reconstruction, and/or weight-based dosing when appropriate to reduce radiation dose to as low as reasonably achievable. Dictated by Gene Santillan MD @ 08/02/2024 2:45:53 PM (Electronic Signature) Discharge Plan Discharge Clinical Impression: Lumbar transverse process fracture Qualifiers: Encounter type: initial encounter Fracture type: closed Qualified Code(s): S32.009A - Unspecified fracture of unspecified lumbar vertebra, initial encounter for closed fracture Fracture, ribs Qualifiers: Encounter type: initial encounter Fracture type: closed Laterality: right Qualified Code(s): S22.41XA - Multiple fractures of ribs, right side, initial encounter for closed fracture Patient Disposition: Home, Self-Care Condition: Stable Instructions: Rib Fracture (ED) Additional Instructions: Take Tylenol 1000 mg 3 times a day baseline for pain. Can supplement with ibuprofen per bottle direction as needed for extra pain control. Have written for a few tablets of oxycodone which is a narcotic for severe pain. Cannot use the narcotic if working or driving. Do recommend that you not use alcohol if using the oxycodone, can have additive affects of diminishing respiratory drive and can result in possibly . This may take weeks, possibly even 1-2 months to feel better from. Do recommend follow-up with your primary care provider DIANE as you will likely need more pain management, I can only provide a small initial amount from the ED. You may benefit from physical therapy which your primary care provider could refer you to. Narcotics can be constipating. If you are using oxycodone, do recommend using MiraLax 17 g daily an adding in senna as needed for goal of a soft but formed daily bowel movement. Activity Level: Activity as Tolerated Prescriptions: New oxycodone 5 mg tablet 5 mg PO Q6H PRN (Reason: pain) Qty: 16 0RF No Action fluconazole 150 mg tablet 150 mg PO Q3D Qty: 2 0RF Rx Instructions: may repeat second dose 72 hrs after first dose if symptoms persist levothyroxine 50 mcg tablet 50 mcg PO DAILY Follow Up/Referrals: Provider,Not a Local [Non-Staff] - Stand Alone Forms: Divshot Info Instructions
--- NOTE | 2024-08-02 13:42 | CRLHL7_ITS ---
For Patients: As a result of the Cures Act, medical imaging exams and procedure reports are released immediately into your electronic medical record. You may view this report before your referring provider. If you have questions, please contact your health care provider. INDICATION: Lower back pain, fall, not better.. Injury to left posterior back. TECHNIQUE: CT abdomen and pelvis acquired with 100 cc Omnipaque 350 IV contrast. COMPARISON: None. FINDINGS: Lower chest: Unremarkable. Liver: Unremarkable. Normal in size and attenuation. No suspicious masses. Gallbladder and bile ducts: Unremarkable. No stones or inflammation. No biliary dilatation. Pancreas: Unremarkable. No mass or inflammation. Spleen: Unremarkable. Normal in size. No masses. Adrenal glands: Unremarkable. No nodules. Kidneys: Unremarkable. No suspicious masses, stones, or hydronephrosis. GI tract: No bowel obstruction. Appendix is not visualized. Vasculature: Abdominal aorta is normal in caliber. Mesenteric arteries are patent. Lymph nodes: No lymphadenopathy. Peritoneum/Abdominal Wall: Probable prior anterior abdominal wall hernia repair. Tiny fat containing hernias along the ventral abdomen. No sign of mass or infiltration. No free air or significant free fluid. Pelvis: Unremarkable. Bones: Fracture of the right L1 and L2 transverse processes. In addition, there is fracture of the right 11th and 12th ribs posteriorly (2/33, 38, 47, 36). IMPRESSION: 1. Fractures of the RIGHT L1, L2 transverse processes as well as the right posterior 11th and 12th ribs. 2. No acute intra-abdominal process identified. Please note that all CT scans at this facility use dose modulation, iterative reconstruction, and/or weight-based dosing when appropriate to reduce radiation dose to as low as reasonably achievable. Dictated by Gene Santillan MD @ 08/02/2024 2:43:01 PM (Electronically Signed)
--- NOTE | 2024-08-02 13:42 | CRLHL7_ITS ---
For Patients: As a result of the Century Cures Act, medical imaging exams and procedure reports are released immediately into your electronic medical record. You may view this report before your referring provider. If you have questions, please contact your health care provider. INDICATION: Lower back pain. Fall.. TECHNIQUE: CT lumbar spine without contrast. COMPARISON: None. FINDINGS: Vertebrae: Alignment is normal. There are fractures of the right L1 and L2 transverse processes. In addition, fractures of the right 11th and 12th ribs posteriorly, better appreciated on concurrent CT of the abdomen and pelvis. Discs and facet joints: Disc spaces and facets are within normal limits. Extraspinal findings: Prevertebral soft tissues and visualized retroperitoneum are unremarkable. IMPRESSION: Fractures of the RIGHT L1 and L2 transverse processes. In addition, fractures of the right 11th and 12th ribs posteriorly. Otherwise, lumbar spine is unremarkable. Please note that all CT scans at this facility use dose modulation, iterative reconstruction, and/or weight-based dosing when appropriate to reduce radiation dose to as low as reasonably achievable. Dictated by Gene Santillan MD @ 08/02/2024 2:45:53 PM (Electronically Signed)
[2024-08-02 14:13] LABS: Basophils Absolute Auto 0.02 K/uL (0.00-0.30); Basophils Percent Auto 0.3 % (0.0-3.0); Eosinophils Absolute Auto 0.11 K/uL (0.00-0.50); Eosinophils Percent Auto 1.5 % (0.0-7.0); Hematocrit 41.2 % (33.0-51.0); Hemoglobin* 13.8 gm/dL (12.0-16.0); Immature Granulocytes Abs Auto 0.03 K/uL (0.00-0.30); Immature Granulocytes Pct Auto 0.4 %; Lymphocytes Absolute Auto 1.91 K/uL (0.90-2.90); Mean Corpuscular HGB Conc 34 gm/dL (32-36); Mean Corpuscular Hemoglobin 32 pg (26-34); Mean Corpuscular Volume 97 fL (80-100); Monocytes Percent Auto 8.3 % (0.0-11.0); Neutrophils Absolute Auto 4.67 K/uL (1.7-7.0); Neutrophils Percent Auto 63.5 % (42.0-72.0); Platelet Count* 222 K/uL (140-440); RDW Coefficient of Variation % 12.3 % (11.5-15.5); Red Blood Count 4.27 m/uL (4.00-5.20); White Blood Count* 7.35 K/uL (4.50-11.00)
[2024-08-02 14:17] LABS: Slide Review Reflex No
[2024-08-02 14:25] LABS: Albumin* 4.5 g/dL (3.3-5.0); Chloride* 103 mmol/L (96-114)
[2024-08-02 14:26] LABS: Potassium* 4.7 mmol/L (3.6-5.1); Sodium* 134 mmol/L (135-149)
[2024-08-02 14:28] LABS: Alkaline Phosphatase* 45 U/L (40-150); Anion Gap 4 mEq/L (7-15); Aspartate Amino Transferase* 27 U/L (12-35); Bilirubin Total* 0.7 mg/dL (0.1-1.5); Blood Urea Nitrogen* 13 mg/dL (5-24); Carbon Dioxide* 27 mmol/L (20-32); Creatinine* 0.6 mg/dL (0.5-1.5); Est. Creatinine Clearance* 109.06; Estimated Glomerular Filt Rate 112 ml/min; Glucose* 93 mg/dL (60-115)
[2024-08-02 14:29] LABS: Alanine Aminotransferase* 18 U/L (4-35); Calcium* 9.6 mg/dL (8.4-10.6)
[2024-08-02 14:32] LABS: Ethanol* < 0.00 % (0.01-0.03)
[2024-08-02 15:27] VITALS: BP 145/121; PULSE 94; RESP 16; TEMP 36.8
[2024-08-02 15:32] LABS: Partial Thromboplastin Time* 25 Seconds (23-33)
[2024-08-02 16:02] LABS: INR 0.89 (0.91-1.10); Prothrombin Time 12.5 Seconds
== END 2024-08-02 15:28 | disposition home or self-care (01) ==
PROVIDERS: Emergency Provider Family Medicine; PCP Nurse Practitioner Family
DX: S32.009A Unspecified fracture of unspecified lumbar vertebra, initial encounter for closed fracture (principal); S22.41XA Multiple fractures of ribs, right side, initial encounter for closed fracture; W18.30XA Fall on same level, unspecified, initial encounter; Y92.003 Bedroom of unspecified non-institutional (private) residence as the place of occurrence of the external cause
CPT/HCPCS: 36415; 71101; 72131; 74177; 80053; 82077; 85025; 85610; 85730; 99284; 99285; Q9967

== ENCOUNTER 2025-03-07 19:31 | Emergency (ER) | payer BC, SELFPAY ==
[2025-03-07 19:58] VITALS: BP 165/106; PULSE 71; RESP 18; TEMP 36.8; O2SAT 99; BMI 20.5
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
--- OUTSIDE RECORDS SUMMARY | 2025-03-07 21:15 | XMS_ITS | Clinical Summary ---
Author Organization [facility] Address [address] [place] [address] Care Team Providers Care Oxidation Engineer Name Role Phone Radha Escalona NP Primary Care Provider [phone] Allergies Active Allergy Reactions Criticality Noted Date Comments Latex Hives 05/31/2008 Fluoxetine Behavioral Disturbances 09/14/2019 Ranitidine Mental Status Change 09/27/2018 Medications varenicline (CHANTIX) 1 mg tabletIndication s:Encounter for smoking cessation counseling TAKE 1 TABLET BY MOUTH TWICE DAILY WITH MEALS 180 Tablet 4 Active varenicline (CHANTIX DOSEPAK) 0.5 mg (11)- 1 mg (42) tabletIndication s:Encounter for smoking cessation counseling FOLLOW PACKAGE DIRECTIONS 52 Tablet 4 Active levothyroxine 50 mcg tabletIndication s:Hypothyroidism , unspecified type Take 1 Tablet (50 mcg) by mouth once daily. 100 Tablet 3 5 Active nitrofurantoin macrocrystals/mo nohydrate 100 mg capsuleIndicatio ns:E. coli UTI Take 1 Capsule (100 mg) by mouth two times daily. 10 Capsule 5 Active Active Problems Problem Noted Date Diagnosed Date Alcohol dependence with alcohol-induced mood dis order 06/25/2022 Major depressive disorder, recurrent, moderate 0 10/31/2019 Nicotine use disorder 10/31/2019 Situational mixed anxiety and depressive disorde r 03/08/2018 Overview (09/14/2019): Tried Fluoxetine and that made her symptoms worse. Tried Sertraline and she doesn't recall exactly but it did not help. Tried Lexapro and she did not like how she felt on it. 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 08/31/2017: Total hysterectomy Provider Plan (see telephone encounter 08/18/23): Paps are no longer indicated. Resolved Problems Problem Noted Date Diagnosed Date Resolved Date Mild episode of recurrent ma true depressive disorder 06/25/2022 06/25/2022 Suicide attempt 09/28/2021 02/23/2022 Alcohol use disorder, mild, abuse 10/31/2019 06/25/2022 Supervision of other normal 05/31/2008 01/18/2012 Encounters Date Type Department Care Team Description 12/28/2024 [place] [facility] [place] [address] [place] [address] Radha Escalona PEANUT BLANCHER Questions (UTI not leaving) 12/20/2024 1:45 PM CDT [place] [facility] [place] [address] [place] [address] Radha Escalona, PEANUT BLANCHER Vaginal Itching (Denies odor or discharge); Urinary Problem (Urgency and pressure x 4 days) 12/20/2024 Travel from Last 3 Months Immunizations Immunization Administration Dates Next Due AMB Influenza, IIV4 PF (=>6 mos Flulaval,Fluzone Fluarix)(Flu Clinic Only) 06/11/2019,05/31/2014 Influenza, IIV3 (Age >=3 years) 06/27/2013 Influenza, IIV4 05/31/2016,05/31/2014 Td (Age >=7 Years) 01/29/1994 Tdap 06/25/2022,05/08/2012,08/22/2003 Family History Medical History Relation Name Comments Heart Disease Brother 4 started in lat e 20's Heart Disease Father first OR age 3 7, now 53 Hypertension Father Cancer Maternal Grandfather lung CA Cancer Maternal Grandmother ovarian ? Hypertension Mother Other Mother COPD Psychiatric illness Mother ETOH Heart Disease Paternal Grandfather fatal OR at age 42 Diabetes Paternal Grandmother Heart Disease Sister 5 murmur Cancer-breast No Family History Relation Name Status Comments Brother 1 Alive Brother 2 Alive Brother 3 Alive Brother 4 Father Alive Maternal Grandfather Maternal Grandmother Mother (Age 52) COPD Paternal Grandfather Paternal Grandmother Sister 1 Alive Sister 2 Alive Sister 3 Alive Sister 4 Alive Sister 5 Social History Tobacco Use Types Packs/Day Years Used Date Smoking Tobacco: Former Cigarettes 2 31.8 0 10/29/1991 - 09/04/2023 Smokeless Tobacco: Former Quit: 06/14/2012 Tobacco Cessation:Counseling Given: Not Answered Alcohol Use Standard Drinks/Week Comments Yes 0 (1 standard drink = 0.6 oz pur e alcohol) PHQ-2 Answer Date Recorded PHQ-2 TOTAL SCORE 0 08/09/2023 Social Connections Answer Date Recorded Do you often feel lonely or isolated from those around you? 0 12/20/2024 Financial Resource Strain Answer Date R ecorded Difficulty of Paying Living Expenses 3 12/20/2024 Difficulty of Paying Living Expenses Not on file 12/20/2024 Food Insecurity Answer Date Recorded Do you worry your food will run out before you are able to buy more? 1 12/20/2024 Transportation Needs Answer Date Record ed Does lack of transportation keep you from medica l appointments? 1 12/20/2024 Does lack of transportation keep you from work, meetings or getting things that you need? 1 12/20/2024 Housing Stability Answer Date Recorded What is your housing situation today? 1 12/20/2024 Utilities Answer Date Recorded Do you have trouble paying f or utilities (for example, heat, electricity, water, phone)? 1 12/20/2024 Comments No Sex and Gender Information Value Date Recorded Sex Assigned at Not on file Legal Sex Female 7:06 AM DIRECTOR BUSINESS INTELLIGENCE Gender Identity Not on file Sexual Orientation Not on file Occupation Industry Job Start Date Job End Date Not on file Not on file Not on file Not on file Obstetrics History Para Term AB IAB SAB Ectopic Multiple Livin g Live Births 6 3 3 2 1 1 3 Date Outcome GA Total Labor Labor/2nd/3rd Weight Sex Type Anes PTL Alba A1 A5 Name Clin Comments:System Genera rosie. Please review and update details. 1998 Ectopic 000 Term 40w 0d 9h 00m/ 3.6 kg (7 lb 15 oz) M Meme gallardoola s 001 Term 40w 0d 15h 00m/ 2.98 kg (6 lb 9 oz) M Meme Joaquin 2003 SAB 004 Term 40w 0d 24h 00m/ 3.52 kg (7 lb 12 oz) M C-Sec waleska Robles Last Filed Vital Signs Vital Sign Reading Time Taken Comments Blood Pressure 180/120 12/20/2024 1:44 PM CDT Pulse 90 12/20/2024 1:44 PM CDT Temperature 36.6 C (97.8 F) 06/14/2023 1:48 PM CDT Respiratory Rate 16 09/28/2023 1:29 PM DIRECTOR BUSINESS INTELLIGENCE Oxygen Saturation 99% 09/21/2023 8:28 AM DIRECTOR BUSINESS INTELLIGENCE Inhaled Oxygen Concentration - - Weight 62.1 kg (137 lb) 12/20/2024 1:44 PM CDT Height 172.7 cm (5' 8) 12/20/2024 1:44 PM CDT Body Mass Index 20.83 12/20/2024 1:44 PM CDT Plan of Treatment Health Maintenance Due Date Last Done Comments Hepatitis B series for 19+ ( 1 of 3 - 19+ 3-dose series) 1996 Pneumococcal series for age 6-49 (1 of 2 - PCV) 1996 Mammogram for age 45-75 2022 10/08/2021 COVID-19 vaccine series ( season) 2024 Depression screening for age 12+ 08/09/2024 08/09/2023, 08/09/2023, 06/25/2022, Additional history exists Influenza Vaccine (#1) 2025 9, 05/31/2016, 05/31/2014, Additional history exists BMI (ht and wt on same day) for age 18+ 12/20/2025 12/20/2024, 09/21/2023, 04/26/2023, Additional history exists Lipids for age 45-75 12/20/2029 12/20/2024, 06/25/2022, 05/31/2016, Additional history exists Tetanus booster 06/25/2032 06/25/2022, 04/22, 08/22/2003 (Completed outside of [facility]), Additional history exists Colonoscopy through age 75 10/03/2033 10/03/2023, HIV for age 15-65 Completed 12/20/2024, , 06/02/2022, Additional history exists Hepatitis C screening for ag e 18-79 Completed 12/20/2024, 06/02/2022, 01/20/2018 Procedures Procedure Name Priority Date/Time Associated Diagnosis Comments TSH Routine 12/20/2024 2:14 PM CDT Hypothyroidism, unspecified type COMP METABOLIC PANEL Routine 12/20/2024 2:14 PM CDT Alcohol dependence with alcohol-induced mood disorder (HC) LIPID PANEL W REFLEX MEASURED LDL Routine 12/20/2024 2:14 PM CDT Lipid screening HEMOGLOBIN A1C Routine 12/20/2024 2:14 PM CDT Diabetes mellitus screening HBSAG (HBS) Routine 12/20/2024 2:14 PM CDT Screen for STD (sexually transmitted disease) HSV TYPE SPEC IGG TED Routine 12/20/2024 2:14 PM CDT Screen for STD (sexually transmitted disease) ANTI HCV Routine 12/20/2024 2:14 PM CDT Encounter for HCV screening test for low risk patient ANTI HIV 1/2 Routine 12/20/2024 2:14 PM CDT Screen for STD (sexually transmitted disease) TREPONEMA PALLIDUM Routine 12/20/2024 2: 12 PM CDT Screen for STD (sexually transmitted disease) GC CHLAMYDIA TRACH PROBE Routine 12/20/2024 2:00 PM CDT Screen for STD (sexually transmitted disease) TRICHOMONAS, DANK, AND BACTERIAL VAGINOSIS BY JOE Routine 12/20/2024 2:00 PM CDT Vaginal discharge URINALYSIS MACROSCOPIC - [facility] ONLY POC DIP ([facility]) Routine 12/20/2024 1:39 PM CDT Dysuria URINALYSIS MICROSCOPIC Routine 12/20/2024 1:38 PM CDT Dysuria URINE CULTURE Routine 12/20/2024 1:38 PM CDT Dysuria COLONOSCOPY SCREENING Routine 10/03/2023 12:00 AM DIRECTOR BUSINESS INTELLIGENCE Positive colorectal cancer screening using DNA-based stool test XR MAMMO SETH BILAT DIAG IMPLANT DIANE 10/08/2021 2:36 PM DIRECTOR BUSINESS INTELLIGENCE Breast lump on right side at 11 o'clock position from Last 3 Months or Most Recently Relevant to Health Maintenance Results * HEMOGLOBIN A1C (12/20/2024 2:14 PM CDT) HEMOGLOBIN A1C 4.6 <5.7 % [facility] Comment: For the purpose of screening for the presence of diabetes: <5.7% Consistent with the absence of diabetes 5.7-6.4% Consistent with increased risk for diabetes (prediabetes) > or =6.5% Consistent with diabetes This assay result is consistent with a decreased risk of diabetes. Currently, no consensus exists regarding use of hemoglobin A1c for diagnosis of diabetes in children. According to [place] Diabetes Association (ADA) guidelines, hemoglobin A1c <7.0% represents optimal control in non- diabetic patients. Different metrics may apply to specific patient populations. Standards of Medical Care in Diabetes(ADA). Blood BLOOD SPECIMEN / Unknown 12/20/2024 2:14 PM CDT 12/20/2024 2:14 PM CDT us Radha Escalona PEANUT BLANCHER CHEMISTRY Final Res ult Performing Organization Address [facility]/ZIP Co de Phone Number [facility] [address] [place] [address], [facility] [address] [place] [address] * (ABNORMAL) LIPID PANEL W REFLEX MEASURED LDL (12/20/2024 2:14 PM CDT) CHOLESTEROL, TOTAL 229(H) <200 mg/dL [facility] HDL CHOLESTEROL 127 > OR = 50 mg/dL [facility] TRIGLYCERIDES 161(H) <150 mg/dL [facility] LDL-CHOLESTEROL 76 mg/dL (calc) [facility] Comment: Reference range: <100 Desirable range <100 mg/dL for primary prevention; <70 mg/dL for patients with CHD or diabetic patients with > or = 2 CHD risk factors. LDL-C is now calculated using the Juan calculation, which is a validated novel method providing better accuracy than the Friedewald equation in the estimation of LDL-C. Brenton MORSE et al. EDMUNDO. 2013;310(19): 2686-3732 (http://education.BetterYou/faq/ATU394) CHOL/HDLC RATIO 1.8 <5.0 (calc) [facility] NON HDL CHOLESTEROL 102 <130 mg/dL (calc) [facility] Comment: For patients with diabetes plus 1 major ASCVD risk factor, treating to a non-HDL-C goal of <100 mg/dL (LDL-C of <70 mg/dL) is considered a therapeutic option. Blood BLOOD SPECIMEN / Unknown 12/20/2024 2:14 PM CDT 12/20/2024 2:14 PM CDT us Radha Escalona PEANUT BLANCHER CHEMISTRY Final Res ult Performing Organization Address City/[facility]/ZIP Co de Phone Number [facility] [address] [place] [address], [facility] [address] [place] [address] * (ABNORMAL) HSV TYPE SPEC IGG TED (12/20/2024 2:14 PM CDT) Pathologist [facility] HSV 1 IGG, TYPE SPECIFIC AB 44.90(H) index [facility] HSV 2 IGG, TYPE SPECIFIC AB <0.90 index [facility] Comment: Index Interpretation ----- <0.90 Negative 0.90-1.09 Equivocal >1.09 Positive This assay utilizes recombinant type-specific antigens to differentiate HSV-1 from HSV-2 infections. A positive result cannot distinguish between recent and past infection. If recent HSV infection is suspected but the results are negative or equivocal, the assay should be repeated in 4-6 weeks. The performance characteristics of the assay have not been established for pediatric populations, immunocompromised patients, or screening. For additional information, please refer to http://education.BetterYou/faq/BFX081 (This link is being provided for informational/ educational purposes only.) Blood BLOOD SPECIMEN / Unknown 12/20/2024 2:14 PM CDT 12/20/2024 2:14 PM CDT Radha Escalona NP SEND OUTS Final Res ult [facility] [address] [place] [address], [facility] [address] [place] [address] * TSH (12/20/2024 2:14 PM CDT) [facility] TSH 2.07 mIU/L [facility] Comment: Reference Range > or = 20 Years 0.40-4.50 Ranges First trimester 0.26-2.66 Second trimester 0.55-2.73 Third trimester 0.43-2.91 Blood BLOOD SPECIMEN / Unknown 12/20/2024 2:14 PM CDT 12/20/2024 2:14 PM CDT Radha Escalona PEANUT BLANCHER CHEMISTRY Final Res ult Performing Organization Address [facility] Co de Phone Number [facility] [address] [place] [address], [place] [phone] [facility] [address] [place] [address] * HBSAG (HBS) (12/20/2024 2:14 PM CDT) HEPATITIS B SURFACE ANTIGEN NON-REACTI VE NON-REACTI VE [facility] Comment: For additional information, please refer to http://MaulSoup/faq/GWX671 (This link is being provided for informational/ educational purposes only.) Blood BLOOD SPECIMEN / Unknown 12/20/2024 2:14 PM CDT 12/20/2024 2:14 PM CDT us Radha Escalona NP SEND OUTS Final Res ult Performing Organization Address [facility] Co de Phone Number [facility] [address] [place] [address], [place] [phone] [facility] [address] [place] [address] * ANTI HCV (12/20/2024 2:14 PM CDT) HEPATITIS C ANTIBODY NON-REACTI VE NON-REACT NYDIA [facility] Comment: HCV antibody was non-reactive. There is no laboratory evidence of HCV infection. In most cases, no further action is required. However, if recent HCV exposure is suspected, a test for HCV RNA (test code 18768) is suggested. For additional information please refer to http://MaulSoup/faq/PYE15o8 (This link is being provided for informational/ educational purposes only.) Blood BLOOD SPECIMEN / Unknown 12/20/2024 2:14 PM CDT 12/20/2024 2:14 PM CDT Radha Escalona PEANUT BLANCHER SEND OUTS Final Res ult Performing Organization Address [facility] Co de Phone Number [facility] [address] [facility] [place] [address], [place] [phone] [facility] [address] [address] * ANTI HIV 1/2 (12/20/2024 2:14 PM CDT) HIV AG/AB, 4TH GEN NON-REACT NYDIA NON-REACT NYDIA [facility] Comment: HIV-1 antigen and HIV-1/HIV-2 antibodies were not detected. There is no laboratory evidence of HIV infection. PLEASE NOTE: This information has been disclosed to you from records whose confidentiality may be protected by state law. If your state requires such protection, then the state law prohibits you from making any further disclosure of the information without the specific written consent of the person to whom it pertains, or as otherwise permitted by law. A general authorization for the release of medical or other information is NOT sufficient for this purpose. For additional information please refer to http://education.SpringCM/faq/XXS100 (This link is being provided for informational/ educational purposes only.) The performance of this assay has not been clinically validated in patients less than 2 years old. Blood BLOOD SPECIMEN / Unknown 12/20/2024 2:14 PM CDT 12/20/2024 2:14 PM CDT Radha Escalona NP SEND OUTS Final Res ult Performing Organization Address [facility]/ZIP Co de Phone Number [facility] [address] [place] [address], [place] [phone] [facility] [address] [facility] [place] [address] * (ABNORMAL) COMP METABOLIC PANEL (12/20/2024 2:14 PM CDT) GLUCOSE 73 65 - 99 mg/dL [facility] Comment: Fasting reference interval UREA NITROGEN (BUN) 11 7 - 25 mg/dL [facility] CREATININE 0.76 0.50 - 0.99 mg/dL [facility] EGFR 98 > OR = 60 mL/min/1. 73m2 [facility] BUN/CREATININE RATIO SEE NOTE: 6 - 22 (calc) [facility] Comment: Not Reported: BUN and Creatinine are within reference range. SODIUM 138 135 - 146 mmol/L [facility] POTASSIUM 5.4(H) 3.5 - 5.3 mmol/L [facility] CHLORIDE 101 98 - 110 mmol/L [facility] CARBON DIOXIDE 29 20 - 32 mmol/L [facility] CALCIUM 9.6 8.6 - 10.2 mg/dL [facility] PROTEIN, TOTAL 7.1 6.1 - 8.1 g/dL [facility] ALBUMIN 4.7 3.6 - 5.1 g/dL [facility] GLOBULIN 2.4 1.9 - 3.7 g/dL (calc) [facility] ALBUMIN/GLOBULIN RATIO 2.0 1.0 - 2.5 (calc) [facility] BILIRUBIN, TOTAL 0.6 0.2 - 1.2 mg/dL [facility] ALKALINE PHOSPHATASE 41 31 - 125 U/L [facility] AST 30 10 - 35 U/L [facility] ALT 17 6 - 29 U/L [facility] Blood BLOOD SPECIMEN / Unknown 12/20/2024 2:14 PM CDT 12/20/2024 2:14 PM CDT us Radha Escalona PEANUT BLANCHER CHEMISTRY Final Res ult [facility] [address] [place] [address], [facility] [address] [place] [address] * TREPONEMA PALLIDUM (12/20/2024 2:12 PM CDT) TREPONEMA PALLIDUM Non-Reacti ve Non-Reacti ve 12/20/2024 10:45 PM CDT [facility] Blood BLOOD SPECIMEN / Unknown [facility] / Unknown 12/20/2024 2:12 PM CDT 12/20/2024 2:12 PM CDT Radha Escalona PEANUT BLANCHER SEND OUTS Final Res ult Performing Organization Address City/[facility]/ZIP Co de Phone Number [facility] [address] [place] [address], [place] * (ABNORMAL) TRICHOMONAS, DANK, AND BACTERIAL VAGINOSIS BY JOE (12/20/2024 2:00 PM CDT) Pathologist [facility] DANK SPECIES Positive(A) Negative 12/22/19 25 1:03 PM CDT [facility] DANK GLABRATA Negative Negative 12/21/2024 1:03 PM CDT [facility] TRICHOMONAS VVA Negative Negative 1:03 PM CDT [facility] BACTERIAL VAGINOSIS Negative Negative 12/21/2024 1:03 PM CDT [facility] Other VAGINAL SWAB / Unknown Non-Blood / Unknown 12/20/2024 2:00 PM CDT 12/20/2024 3:34 PM CDT Radha Escalona PEANUT BLANCHER MICROBIOLOGY Final Res ult [facility] [address] [place] [address], [place] * GC & CHLAMYDIA DNA PCR [[id number]] (12/20/2024 2:00 PM CDT) CHLAMYDIA PROBE Negative 1:55 PM CDT [facility] N GONORRHOEAE PROBE Negative 12/21/2024 1:55 PM CDT [facility] Other VAGINAL SWAB / Unknown Non-Blood / Unknown 12/20/2024 2:00 PM CDT 12/20/2024 3:34 PM CDT Radha Escalona PEANUT BLANCHER MICROBIOLOGY Final Res ult [facility] [address] [place] [address], [place] * POCT Urinalysis Dipstick Only [[id number]] (12/20/2024 1:39 PM CDT) Pathologist [facility] PH 6.0 5.0 - 8.0 [facility] SPECIFIC GRAVITY < OR = 1.005 1.001 - 1.035 [facility] Comment: Specific Bertrand values resulted are outside the analytical measurement range of this device. Recommend repeat/additional testing as clinically indicated. GLUCOSE NEGATIVE NEGATIVE [facility] BILIRUBIN NEGATIVE NEGATIVE [facility] KETONES NEGATIVE NEGATIVE [facility] OCCULT BLOOD NEGATIVE NEGATIVE [facility] PROTEIN NEGATIVE NEGATIVE [facility] NITRITE NEGATIVE NEGATIVE [facility] LEUKOCYTE ESTERASE NEGATIVE NEGATIVE [facility] Urine URINE SPECIMEN / Unknown 12/20/2024 1:39 PM CDT 12/20/2024 1:39 PM CDT Radha Escalona PEANUT BLANCHER URINE Final Res ult Performing Organization Address City/[facility]/ZIP Co de Phone Number [facility] [address] [facility] [address] [address], [place] [phone] [facility] [address] [place] [address] * URINALYSIS MICROSCOPIC [23072.1] - routine (12/20/2024 1:38 PM CDT) RBC 0-2 0-2, None Seen /HPF 12/20/2024 11:50 PM CDT [facility] WBC 3-5 0-2, 3-5, None Seen /HPF 12/20/2024 11:50 PM CDT [facility] BACTERIA None Seen None Seen, Rare, Few Bacteria/ HPF 12/20/2024 11:50 PM CDT [facility] EPITHELIAL CELLS None Seen None Seen, Few Epi/HPF 12/20/2024 11:50 PM CDT [facility] HYALINE CASTS 0-2 0-2, 3-5 /LPF 12/20/2024 11:50 PM CDT [facility] Urine URINE SPECIMEN / Unknown Non-Blood / Unknown 12/20/2024 1:38 PM CDT 12/20/2024 1:38 PM CDT us Radha Escalona PEANUT BLANCHER URINE Final Res ult [facility] [address] [place] [address], * (ABNORMAL) URINE CULTURE [[id number]] (12/20/2024 1:38 PM CDT) CULTURE RESULT(A) 12/23/2024 7:59 AM CDT [facility] CULTURE 10,000-50,000 CFU/mL Escherichia coli 12/23/2024 7:59 AM CDT [facility] Comment:ESBL-positive (Exten ded-spectrum beta-lactamase); multidrug-resistant organism. Urine URINE SPECIMEN / Unknown Non-Blood / Unknown 12/20/2024 1:38 PM CDT 12/20/2024 1:38 PM CDT Narrative Organism Antibiotic Method Susceptibility Escherichia coli TRIMETHOPRIM/SULF >=16/304: R Escherichia coli AMPICILLIN >=32: R Escherichia coli CEFAZOLIN >=32: R Escherichia coli CEFAZOLIN-UC >=32: R Comment:Cefazolin-UC interpretations are for therapy of uncomplicated UTIs due to E.coli, K.pneumoniae, or P.mirablis. Cefazolin breakpoint is used as a surrogate to predict results for the oral agents - cefdinir, cefuroxime, and cephalexin, when used for therapy of uncomplicated UTIs due to E coli, K, pneumoniae, and P. mirabilis. The FDA recommends cefadroxil susceptibility can be deduced from cefazolin. Escherichia coli GENTAMICIN <=1: S Escherichia coli CEFTRIAXONE >=64: R Escherichia coli CEFTAZIDIME >=32: R Escherichia coli LEVOFLOXACIN 1: I Escherichia coli CIPROFLOXACIN 1: R Escherichia coli PIPERACILLIN/TAZO <=4: S Escherichia coli AMPICILLIN/SULBACTAM 16: I Escherichia coli CEFEPIME 16: R Escherichia coli MEROPENEM <=0.25: S Escherichia coli NITROFURANTOIN <=16: S Radha Escalona NP MICROBIOLOGY Final Res ult [facility] [address] [place] [phone], * COLONOSCOPY SCREENING (10/03/2023 12:00 AM DIRECTOR BUSINESS INTELLIGENCE) Radha Escalona NP GI PROCEDURE ORD Final Re sult * XR MAMMO SETH BILAT DIAG IMPLANT (10/08/2021 2:36 PM DIRECTOR BUSINESS INTELLIGENCE) Anatomical Region Laterality Modality BREASTS, Breast Left, Breast Right Bilateral Mammography 10/08/2021 2:40 PM DIRECTOR BUSINESS INTELLIGENCE Impressions 10/08/2021 4:05 PM DIRECTOR BUSINESS INTELLIGENCE Normal BILATERAL mammograms and normal targeted RIGHT breast ultrasound. No evidence of malignancy. RECOMMENDATIONS: Annual BILATERAL screening mammography. Results and recommendations discussed with the patient. BI-RADS Category 2: Benign Dictated by: Jaren Ryan MD @10/08/2021 2:40:28 PM / NINO:gabe PATIENTS: You will also receive a letter with your examination results in an easy to read format. If you have questions about your results, please contact your referring provider. Narrative 10/08/2021 4:05 PM DIRECTOR BUSINESS INTELLIGENCE For Patients: As a result of the Century Cures Act, medical imaging exams and procedure reports are released immediately into your electronic medical record. You may view this report before your referring provider. If you have questions, please contact your health care provider. DIGITAL DIAGNOSTIC BILATERAL MAMMOGRAM WITH IMPLANT-DISPLACED VIEWS USING TOMOSYNTHESIS AND COMPUTER-AIDED DETECTION, 10/08/2021 RIGHT BREAST ULTRASOUND, 10/08/2021 CLINICAL HISTORY: RIGHT breast lump. COMPARISON: None. TECHNIQUE: Digital BILATERAL mammogram in eight projections. Tomosynthesis and CAD utilized. Real-time ultrasound imaging of RIGHT breast with imaging documentation. BREAST COMPOSITION: The breasts are heterogeneously dense, which may obscure small masses. FINDINGS: BILATERAL mammograms demonstrate intact implants. Normal fibroglandular tissue. No suspicious masses or architectural distortion. No adenopathy or suspicious calcifications. Targeted RIGHT breast ultrasound performed in the area of concern 11 o'clock 5 cm from the nipple. In this location normal fibroglandular tissue noted. No sebaceous cyst or mass. us John Hernandez MD MAMMO Final Resu lt from Last 3 Months or Most Recently Relevant to Health Maintenance Additional Health Concerns Infection Onset Date Last Indicated ESBL 12/20/2024 12/20/2024 Insurance [facility] Advance Directives Documents on File Type Date Recorded Patient Freelance Copywriter Expl anation Healthcare Directive 06/05/2022 022 * Full Code (Latest Code Status on File) Date Activated Date Inactivated Comments 10/29/2019 11:34 PM 10/31/2019 4:16 PM Question Answer Comments Code Status Discussion: Not Discussed * Full Code Date Activated Date Inactivated Comments 10/29/2019 9:06 PM 10/29/2019 11:34 PM Question Answer Comments Code Status Discussion: Not Discussed Care Teams Oxidation Engineer Relationship Specialty [place] [address] [place] [address] PCP - General Nurse Practitioner 06/25/22
--- NOTE | 2025-03-07 22:04 | CRLHL7_ITS ---
For Patients: As a result of the Century Cures Act, medical imaging exams and procedure reports are released immediately into your electronic medical record. You may view this report before your referring provider. If you have questions, please contact your health care provider. INDICATION: Trauma. TECHNIQUE: CT cervical spine without contrast. COMPARISON: CT cervical spine 10/23/2022. FINDINGS: Vertebrae: Mild reversal of the normal cervical lordosis. There are no fractures or suspicious bony lesions. Discs and facet joints: Mild disc space narrowing at C4-C5. Severe facet arthropathy at right C3-C4. Remaining disc spaces and facet joints are unremarkable. Extraspinal findings: Subcentimeter thyroid nodules. IMPRESSION: No acute fracture or traumatic subluxation of the cervical spine. Please note that all CT scans at this facility use dose modulation, iterative reconstruction, and/or weight-based dosing when appropriate to reduce radiation dose to as low as reasonably achievable. Dictated by Jaciel Mondragon MD @ 03/07/2025 11:01:46 PM (Electronically Signed)
[2025-03-07 22:14] VITALS: BP 180/117; PULSE 87; TEMP 36.8
--- NOTE | 2025-03-07 22:24 | ED.NURSE ---
Dr. Pascal speaking with [facility]. Patient is declining to transfer by ambulance.
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
--- NOTE | 2025-03-07 22:51 | PC.NURSE ---
AMA for for transport refusal filled out. Patient has been discharged and will drive with S?O by private vehicle to [facility] [place] [facility]. ALl paper work has been sent
== END 2025-03-07 22:53 | disposition other institution (70) ==
PROVIDERS: Emergency Provider Student in an Organized Health Care Education/Training Program; PCP Nurse Practitioner Family
DX: I62.00 Nontraumatic subdural hemorrhage, unspecified (principal)
CPT/HCPCS: 70450; 72125; 99284; 99285

== ENCOUNTER 2025-03-15 18:50 | Emergency (ER) | payer BC, SELFPAY ==
--- OUTSIDE RECORDS SUMMARY | 2025-03-15 18:53 | XMS_ITS | Clinical Summary ---
Author Organization [facility] Address [address] [place] [address] Care Team Providers Care [employer] Speech Therapist Name Role Phone Radha Escalona NP Primary Care Provider [phone] Allergies Active Allergy Reactions Criticality Noted Date [...] Encounters Date Type Department Care Team Description 03/07/2025 Orders Only [facility] Scanner 1 scan: (1-Ord) [place], CERVICAL SPINE WO CON, 03/07/2025 03/07/2025 Orders Only [facility] Scanner 1 scan: (1-Ord) [facility], HEAD/BRAIN W/O CONT, 03/07/2025 12/28/2024 Telephone [facility] [address] [place] [address] Radha Escalona NP Questions (UTI not leaving) 12/20/2024 1:45 PM CDT Office Visit [facility] [address] [place] [address] Radha Escalona NP Vaginal Itching (Denies odor or discharge); Urinary [...] lat e 20's Heart Disease Father first AR age 3 7, now 53 Hypertension Father Cancer Maternal Grandfather lung CA Cancer Maternal Grandmother ovarian ? Hypertension Mother Other Mother COPD Psychiatric illness Mother ETOH Heart Disease Paternal Grandfather fatal AR at age 42 Diabetes Paternal Grandmother Heart [...] on file Legal Sex Female 7:06 AM WINDOW CLEANER Gender Identity Not on file Sexual Orientation [...] 3.6 kg (7 lb 15 oz) M Vag franc s 001 Term 40w 0d 15h 00m/ 2.98 kg (6 lb 9 oz) M Meme Nuñez 2001 SAB 004 Term 40w 0d 24h 00m/ 3.52 kg (7 lb 12 oz) M C-Sec waleska Robles Last Filed Vital Signs Vital Sign Reading Time Taken Comments Blood Pressure 180/120 12/20/2024 1:44 PM CDT Pulse 90 12/20/2024 1:44 PM CDT Temperature 36.6 C (97.8 F) 06/14/2023 1:48 PM CDT Respiratory Rate 16 09/28/2023 1:29 PM WINDOW CLEANER Oxygen Saturation 99% 09/21/2023 8:28 AM WINDOW CLEANER Inhaled Oxygen Concentration - - Weight 62.1 [...] age 45-75 2022 10/08/2021 COVID-19 vaccine series (1 - season) 2024 Depression screening for age 12+ 08/09/2024 08/09/2023, 08/09/2023, 06/25/2022, Additional history exists Influenza Vaccine (#1) 2025 9, 05/31/2016, 05/31/2014, Additional history exists BMI (ht and wt on same day) for age 18+ 12/20/2025 12/20/2024, 09/21/2023, 04/26/2023, Additional history exists Lipids for age 45-75 12/20/2029 12/20/2024, 06/25/2022, 05/31/2016, Additional history exists Tetanus booster 06/25/2032 06/25/2022, 04/22, 08/22/2003 (Completed outside of [facility]), Additional history exists Colonoscopy through age 75 10/03/2033 10/03/2023, HIV for age 15-65 Completed 12/20/2024, , 06/02/2022, Additional history exists Hepatitis C screening for ag e 18-79 Completed 12/20/2024, 06/02/2022, 01/20/2018 Procedures Procedure Name Priority Date/Time Associated Diagnosis Comments SCAN-CT INTERPRETATION 5 12:00 AM CDT SCAN-CT INTERPRETATION 5 12:00 AM CDT TSH Routine 12/20/2024 2:14 PM CDT Hypothyroidism, [...] PM CDT Vaginal discharge URINALYSIS MACROSCOPIC - [facility] ONLY POC DIP ([facility]) Routine 12/20/2024 1:39 PM CDT Dysuria URINALYSIS MICROSCOPIC Routine 1:38 PM CDT Dysuria URINE CULTURE Routine 12/20/2024 1:38 PM CDT Dysuria COLONOSCOPY SCREENING Routine 10/03/2023 12:00 AM WINDOW CLEANER Positive colorectal cancer screening using DNA-based stool test XR MAMMO SETH BILAT DIAG IMPLANT DIANE 10/08/2021 2:36 PM WINDOW CLEANER Breast lump on right side at 11 o'clock position from Last 3 Months or Most Recently Relevant to Health Maintenance Results * SCAN-CT INTERPRETATION (03/07/2025 12:00 AM CDT) Only the most recent of2 resultswithin the time period is included. Anatomical Region Laterality Modality Other us Scanner OTHER Final Result * HEMOGLOBIN A1C (12/20/2024 2:14 PM CDT) HEMOGLOBIN A1C 4.6 <5.7 % [facility] Comment: For the purpose of screening for the presence of diabetes: <5.7% Consistent with the absence of diabetes 5.7-6.4% Consistent with increased risk for diabetes (prediabetes) > or =6.5% Consistent with diabetes This assay result is consistent with a decreased risk of diabetes. Currently, no consensus exists regarding use of hemoglobin A1c for diagnosis of diabetes in children. According to [place] Diabetes Association (ADA) guidelines, hemoglobin A1c <7.0% represents optimal control in non- diabetic patients. Different metrics may apply to specific patient populations. Standards of Medical Care in Diabetes(ADA). Blood BLOOD SPECIMEN / Unknown 12/20/2024 2:14 PM CDT 12/20/2024 2:14 PM CDT Radha Escalona NP CHEMISTRY Final Res ult [facility] [address] [place] [address], [facility] [address] [place] [address] * (ABNORMAL) LIPID PANEL W REFLEX MEASURED LDL (12/20/2024 2:14 PM CDT) [facility] Signature CHOLESTEROL, TOTAL 229(H) <200 mg/dL [facility] HDL CHOLESTEROL 127 > OR = 50 mg/dL [facility] TRIGLYCERIDES 161(H) <150 mg/dL [facility] LDL-CHOLESTEROL 76 mg/dL (calc) [facility] Comment: Reference range: <100 Desirable range <100 mg/dL for primary prevention; <70 mg/dL for patients with CHD or diabetic patients with > or = 2 CHD risk factors. LDL-C is now calculated using the Juna calculation, which is a validated novel method providing better accuracy than the Friedewald equation in the estimation of LDL-C. Brenton MORSE et al. EDMUNDO. 2013;310(19): 7993-5745 (http://education.Wordlock.Mobileum/faq/SPW759) CHOL/HDLC RATIO 1.8 <5.0 (calc) [facility] NON HDL CHOLESTEROL 102 <130 mg/dL (calc) [facility] Comment: For patients with diabetes plus 1 major ASCVD risk factor, treating to a non-HDL-C goal of <100 mg/dL (LDL-C of <70 mg/dL) is considered a therapeutic option. Blood BLOOD SPECIMEN / Unknown 12/20/2024 2:14 PM CDT 12/20/2024 2:14 PM CDT Radha Escalona LIVESTOCK BROKER CHEMISTRY Final Res ult Performing Organization Address [facility] de Phone Number [facility] [address] [place] [address], [facility] [address] [place] [address] * (ABNORMAL) HSV TYPE SPEC IGG TED (12/20/2024 2:14 PM CDT) [facility] HSV 1 IGG, TYPE SPECIFIC AB 44.90(H) index [facility] HSV 2 IGG, TYPE SPECIFIC AB <0.90 index Insurance [facility] Comment: Index Interpretation ----- <0.90 Negative 0.90-1.09 [...] screening. For additional information, please refer to http://education.Wordlock.Mobileum/faq/ONM944 (This link is being provided for informational/ educational purposes only.) Blood BLOOD SPECIMEN / Unknown 12/20/2024 2:14 PM CDT 12/20/2024 2:14 PM CDT us Radha Escalona NP SEND OUTS Final Res ult Performing Organization Address [facility]/ZIP Co de Phone Number [facility] [address] [place] [address], [place] [phone] [facility] [address] [place] [address] * TSH (12/20/2024 2:14 PM CDT) TSH 2.07 mIU/L [facility] Comment: Reference Range > or = 20 Years 0.40-4.50 Ranges First trimester 0.26-2.66 Second trimester 0.55-2.73 Third trimester 0.43-2.91 Blood BLOOD SPECIMEN / Unknown 12/20/2024 2:14 PM CDT 12/20/2024 2:14 PM CDT us Radha Escalona LIVESTOCK BROKER CHEMISTRY Final Res ult Performing Organization Address [facility]/ZIP Co de Phone Number [facility] [address] [place] [address], [place] [phone] [facility] [address] [place] [address] * HBSAG (HBS) (12/20/2024 2:14 PM CDT) Pathologist [facility] HEPATITIS B SURFACE ANTIGEN NON-REACTI VE NON-REACTI VE [facility] Comment: For additional information, please refer to http://education.Hooja/faq/WPE802 (This link is being provided for informational/ educational purposes only.) Blood BLOOD SPECIMEN / Unknown 12/20/2024 2:14 PM CDT 12/20/2024 2:14 PM CDT us Radha Escalona LIVESTOCK BROKER SEND OUTS Final Res ult Performing Organization Address [facility]/ZIP Co de Phone Number [facility] [address] [place] [address], [place] [phone] [facility] [address] [place] [address] * ANTI HCV (12/20/2024 2:14 PM CDT) HEPATITIS C ANTIBODY NON-REACTI VE NON-REACT NYDIA [facility] Comment: HCV antibody was non-reactive. There is no laboratory evidence of HCV infection. In most cases, no further action is required. However, if recent HCV exposure is suspected, a test for HCV RNA (test code 00641) is suggested. For additional information please refer to http://VisiQuate.Hooja/faq/NNW02h7 (This link is being provided for informational/ educational purposes only.) Blood BLOOD SPECIMEN / Unknown 12/20/2024 2:14 PM CDT 12/20/2024 2:14 PM CDT Radha Escalona LIVESTOCK BROKER SEND OUTS Final Res ult [facility] [address] [place] [address], [facility] [address] [place] [address] * ANTI HIV 1/2 (12/20/2024 2:14 PM CDT) Pathologist [facility] HIV AG/AB, 4TH GEN NON-REACT NYDIA NON-REACT NYDIA [facility] Comment: HIV-1 antigen and HIV-1/HIV-2 antibodies were [...] purpose. For additional information please refer to http://VisiQuate.Hooja/faq/SLI595 (This link is being provided for informational/ educational purposes only.) The performance of this assay has not been clinically validated in patients less than 2 years old. Blood BLOOD SPECIMEN / Unknown 12/20/2024 2:14 PM CDT 12/20/2024 2:14 PM CDT Radha Escalona LIVESTOCK BROKER SEND OUTS Final Res ult [facility] [address] [place] [address], [facility] [address] [place] [address] * (ABNORMAL) COMP METABOLIC PANEL (12/20/2024 2:14 PM CDT) GLUCOSE 73 65 - 99 mg/dL [facility] Comment: Fasting reference interval UREA [...] CDT 12/20/2024 2:14 PM CDT Radha Escalona LIVESTOCK BROKER CHEMISTRY Final Res ult [facility] [address] [place] [address], [facility] [address] [place] [address] * TREPONEMA PALLIDUM (12/20/2024 2:12 PM CDT) TREPONEMA PALLIDUM Non-Reacti ve Non-Reacti ve 12/20/2024 10:45 PM CDT [facility] Blood BLOOD SPECIMEN / Unknown [facility] / Unknown 12/20/2024 2:12 PM CDT 12/20/2024 2:12 PM CDT us Radha Escalona LIVESTOCK BROKER SEND OUTS Final Res ult [facility] [address] [place] [address], * (ABNORMAL) TRICHOMONAS, DANK, AND BACTERIAL VAGINOSIS BY JOE (12/20/2024 2:00 PM CDT) DANK SPECIES Positive(A) Negative 12/22/19 25 1:03 PM CDT [facility] DANK GLABRATA Negative Negative 12/21/2024 1:03 PM CDT [facility] TRICHOMONAS VVA Negative Negative 1:03 PM CDT [facility] BACTERIAL VAGINOSIS Negative Negative 12/21/2024 1:03 PM CDT [facility]- N[facility]AL LAB[facility]ATORY Other VAGINAL SWAB / Unknown Non-Blood / Unknown 12/20/2024 2:00 PM CDT 12/20/2024 3:34 PM CDT Radha Escalona LIVESTOCK BROKER MICROBIOLOGY Final Res ult Performing Organization Address [facility] Co de Phone Number [facility] [address] [address], [place] * GC & CHLAMYDIA DNA PCR [[id number]] (12/20/2024 2:00 PM CDT) CHLAMYDIA PROBE Negative 1:55 PM CDT [facility] N GONORRHOEAE PROBE Negative 12/21/2024 1:55 PM CDT [facility] Other VAGINAL SWAB / Unknown Non-Blood / Unknown 12/20/2024 2:00 PM CDT 12/20/2024 3:34 PM CDT Radha Escalona LIVESTOCK BROKER MICROBIOLOGY Final Res ult Performing Organization Address [facility] Co de Phone Number [facility] [address] [address], [place] * POCT Urinalysis Dipstick Only [[id number]] (12/20/2024 1:39 PM CDT) PH 6.0 5.0 - 8.0 [facility] SPECIFIC GRAVITY < OR = 1.005 1.001 - 1.035 [facility] Comment: Specific [place] values resulted are outside the analytical measurement range of this device. Recommend repeat/additional testing as clinically indicated. GLUCOSE NEGATIVE NEGATIVE [facility] BILIRUBIN NEGATIVE NEGATIVE [facility] KETONES NEGATIVE NEGATIVE [facility] OCCULT BLOOD NEGATIVE NEGATIVE [facility] PROTEIN NEGATIVE NEGATIVE [facility] NITRITE NEGATIVE NEGATIVE [facility] LEUKOCYTE ESTERASE NEGATIVE NEGATIVE [facility] Urine URINE SPECIMEN / Unknown 12/20/2024 1:39 PM CDT 12/20/2024 1:39 PM CDT Radha Escalona LIVESTOCK BROKER URINE Final Res ult Performing Organization Address [facility]/ZIP Co de Phone Number [facility] [address] [facility] [place] [address], [facility] [address] [facility] [address] [place] [address] * URINALYSIS MICROSCOPIC [83479.1] - routine (12/20/2024 1:38 PM CDT) RBC 0-2 0-2, None Seen /HPF 12/20/2024 11:50 PM CDT [facility] WBC 3-5 0-2, 3-5, None Seen /HPF 12/20/2024 11:50 PM CDT [facility] BACTERIA None Seen None Seen, Rare, Few Bacteria/ HPF 12/20/2024 11:50 PM CDT [facility] EPITHELIAL CELLS None Seen None Seen, Few Epi/HPF 12/20/2024 11:50 PM CDT [facility] HYALINE CASTS 0-2 0-2, 3-5 /LPF 12/20/2024 11:50 PM CDT [facility] Urine URINE SPECIMEN / Unknown Non-Blood / Unknown 12/20/2024 1:38 PM CDT 12/20/2024 1:38 PM CDT us Radha Escalona LIVESTOCK BROKER URINE Final Res ult [facility] [address] [place] [address], [place] * (ABNORMAL) URINE CULTURE [13272.2] (12/20/2024 1:38 PM CDT) CULTURE RESULT(A) 12/23/2024 7:59 AM CDT [facility] CULTURE 10,000-50,000 CFU/mL Escherichia coli 12/23/2024 7:59 AM CDT [facility] Comment:ESBL-positive (Exten ded-spectrum beta-lactamase); multidrug-resistant organism. [...] <=0.25: S Escherichia coli NITROFURANTOIN <=16: S us Radha Escalona NP MICROBIOLOGY Final Res ult [facility] [address] [place] [address], * COLONOSCOPY SCREENING (10/03/2023 12:00 AM WINDOW CLEANER) us Radha E Escalona LIVESTOCK BROKER GI PROCEDURE ORD Final Re sult * XR MAMMO SETH BILAT DIAG IMPLANT (10/08/2021 2:36 PM WINDOW CLEANER) Anatomical Region Laterality Modality BREASTS, Breast Left, Breast Right Bilateral Mammography 10/08/2021 2:40 PM WINDOW CLEANER Impressions 10/08/2021 4:05 PM WINDOW CLEANER Normal BILATERAL mammograms and normal targeted RIGHT breast ultrasound. No evidence of malignancy. RECOMMENDATIONS: Annual BILATERAL screening mammography. Results and recommendations discussed with the patient. BI-RADS Category 2: Benign Dictated by: Jaren Ryan MD @10/08/2021 2:40:28 PM / CRL:gabe PATIENTS: You will also receive a letter with your examination results in an easy to read format. If you have questions about your results, please contact your referring provider. Narrative 10/08/2021 4:05 PM WINDOW CLEANER For Patients: As a result of the Cures Act, medical imaging exams and procedure [...] Date Last Indicated ESBL 12/20/2024 12/20/2024 Insurance BLUE [facility] [place] Advance Directives Documents on File Type Date Recorded Patient Health Club Attendant Expl anation Healthcare Directive 06/05/2022 022 * Full Code (Latest Code Status on File) Date Activated Date Inactivated Comments 10/29/2019 11:34 PM 10/31/2019 4:16 PM Question Answer Comments Code Status Discussion: Not Discussed * Full Code Date Activated Date Inactivated Comments 10/29/2019 9:06 PM 10/29/2019 11:34 PM Question Answer Comments Code Status Discussion: Not Discussed Care Teams School Speech Therapist Relationship Specialty [place] [address] [place] [address] PCP - General Nurse Practitioner 06/25/22
[2025-03-15 19:07] VITALS: BP 113/72; PULSE 83; RESP 18; TEMP 36.5; O2SAT 96; BMI 21.6
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
[2025-03-15 19:53] LABS: Hematocrit* 38.6 % (33.0-51.0); Hemoglobin* 13.0 gm/dL (12.0-16.0); Immature Granulocytes Abs Auto 0.01 K/uL (0.00-0.30); Immature Granulocytes Pct Auto 0.1 %; Lymphocytes Absolute Auto 2.88 K/uL (0.90-2.90); Mean Corpuscular HGB Conc 34 gm/dL (32-36); Mean Corpuscular Hemoglobin 33 pg (26-34); Mean Corpuscular Volume 97 fL (80-100); RDW Coefficient of Variation % 12.5 % (11.5-15.5); Red Blood Count* 3.99 m/uL (4.00-5.20); White Blood Count* 8.27 K/uL (4.50-11.00)
[2025-03-15 19:54] LABS: Albumin* 4.5 g/dL (3.3-5.0); Chloride* 102 mmol/L (96-114); Potassium* 4.0 mmol/L (3.6-5.1); Sodium* 132 mmol/L (135-149)
[2025-03-15 19:55] LABS: Slide Review Reflex No
[2025-03-15 19:57] LABS: Alanine Aminotransferase* 15 U/L (4-35); Alkaline Phosphatase* 40 U/L (40-150); Anion Gap 7 mEq/L (7-15); Aspartate Amino Transferase* 30 U/L (12-35); Bilirubin Total* 0.5 mg/dL (0.1-1.5); Blood Urea Nitrogen* 8 mg/dL (5-24); Carbon Dioxide* 23 mmol/L (20-32); Creatinine* 0.7 mg/dL (0.5-1.5); Est. Creatinine Clearance* 96.62; Estimated Glomerular Filt Rate 107 ml/min; Total Protein* 6.9 g/dL (6.0-8.3)
[2025-03-15 19:58] LABS: Calcium* 9.1 mg/dL (8.4-10.6); Glucose* 96 mg/dL (60-115)
[2025-03-15 20:17] LABS: Ethanol* 0.24 % (0.01-0.03)
== END 2025-03-15 20:40 | disposition home or self-care (01) ==
PROVIDERS: Emergency Provider Internal Medicine; PCP Nurse Practitioner Family
DX: S09.90XA Unspecified injury of head, initial encounter (principal); Z53.29 Procedure and treatment not carried out because of patient's decision for other reasons
CPT/HCPCS: 36415; 70450; 80053; 82077; 85025; 99283; 99284